=== PATIENT | male | born 1935 | race Caucasian/White ===

== ENCOUNTER 2022-11-18 09:36 | Inpatient (IN) ==
[2022-11-18] MEDS ORDERED: IOPAMIDOL 100 ML BOTTLE IV ONE ×2 (09:37)
[2022-11-18] MEDS ORDERED: ONDANSETRON 4 MG/2 ML VIAL IV ONE (10:30)
--- NOTE | 2022-11-18 10:30 | Emergency Department Note ---
HPI General Chief complaint: Trauma Stated complaint: Fall Time Seen by Provider: 11/18/22 10:21 Source: EMS Mode of arrival: EMS Limitations: altered mental status History of Present Illness HPI Narrative: Narrative: Patient presents by EMS from halfway facility. She has history of dementia and is in a [facility] unit. Patient suffered a fall. It is unclear if it was witnessed. Patient has no recollection of the event. Patient complaining of focal left hip pain as well as abdominal discomfort. Patient does take Eliquis which his reports is due to atrial fibrillation. Patient and are unsure if he had breakfast this morning. Related Data Home Medications Medication Instructions Recorded Confirmed docusate sodium [Stool Softener] PO PRN constipation 10/23/17 09/06/22 senna [Senokot] PO PRN constipation 10/23/17 09/06/22 acetaminophen 500 mg tablet 1,000 mg PO Q6H PRN 11/16/21 09/06/22 (Tylenol Extra Strength) Previous Rx's Medication Instructions Recorded loratadine 10 mg tablet (Allergy 10 mg PO QDAY #60 tabs 08/13/19 Relief (loratadine)) polyethylene glycol 3350 17 17 g PO QDAY #510 grams 02/10/20 gram/dose oral powder (Miralax) bisacodyl 10 mg rectal suppository 10 mg ME QDAY PRN constipation #12 03/25/20 ea aspirin 81 mg tablet,delayed 81 mg PO QDAY #30 tabs 02/12/21 release rosuvastatin 20 mg tablet 20 mg PO QDAY #30 tabs 02/19/21 sertraline 100 mg tablet 100 mg PO QDAY #90 tabs 03/29/22 apixaban 5 mg tablet (Eliquis) 5 mg PO BID #60 tabs 05/05/22 tramadol 50 mg tablet 50 mg PO BID PRN pain #60 tabs 05/10/22 guaifenesin 400 mg tablet 400 mg PO QID PRN cough #120 tabs 09/06/22 memantine 10 mg tablet 10 mg PO BID #180 tabs 09/06/22 olanzapine 10 mg tablet 10 mg PO QHS #90 tabs 09/06/22 donepezil 10 mg tablet 10 mg PO QHS #30 tabs 09/29/22 ibuprofen 200 mg tablet 600 mg PO Q6H PRN pain #60 tabs 11/17/22 lidocaine 5 % topical patch 1 patch topical QDAY PRN pain #15 11/17/22 ea Allergies Allergy/AdvReac Type Severity Reaction Status Date / Time No Known Drug Allergies Allergy Verified 11/18/22 09:39 Review of Systems ROS ROS Narrative: Narrative: Pertinent positives and negatives as noted in HPI. All other systems reviewed and negative. [facility] Narrative Patient History Narrative: Narrative: Medical/Surgical/Family History All Active Problems (Updated 11/18/22 @ 14:54 by Zayda Red PA-C) Closed fracture of left hip (Acute) Dementia with behavioral disturbance (Acute) Acute exacerbation of chronic low back pain (Acute) Atypical chest pain (Acute) Pigmented skin lesion suspicious for malignant neoplasm (Acute) Head injury (Acute) Contusion of scalp (Acute) Chronic SI joint pain (Acute) Actinic keratosis (Chronic) Anxiety disorder (Chronic) Arrhythmia (Chronic) Bradycardia (Chronic) Bronchitis (Chronic) Bursitis, hip (Chronic) Carbuncle and furuncle (Chronic) Chest pain (Chronic) Chronotropic incompetence (Chronic) Constipation (Chronic) Coronary artery disease (Chronic) Decreased vibratory sense (Chronic 01/02/14) Dental caries (Chronic) Pain, dental (Chronic) Dysuria (Chronic) Fatigue (Chronic) Hernia, inguinal, right (Chronic 11/19/10) Herpes zoster (Chronic 08/24/13) Hyperlipidemia (Chronic) Insomnia (Chronic) Leukocytosis (Chronic) Myofascial pain (Chronic) Obstructive uropathy (Chronic) Osteoarthritis (Chronic) Pacemaker (Chronic) Peripheral vascular disease (Chronic 01/02/14) Post herpetic neuralgia (Chronic 01/02/14) Benign prostatic hypertrophy without lower urinary tract symptoms (Chronic) Prostate neoplasm (Chronic) Sinus node dysfunction (Chronic) Sleep disturbance (Chronic) Fracture of toe, closed (Chronic) Urgency of urination (Chronic) Hx of colonoscopy (Chronic 11/19/08) Obsessive-compulsive behavior (Acute) Malfunction of cardiac pacemaker (Chronic) Adverse reaction to drug (Chronic) Dementia (Chronic) Hyperglycemia (Chronic) Malaise and fatigue (Chronic) Adverse reaction to drug (Chronic) Memory Loss (Chronic) URI (upper respiratory infection) (Chronic) Sinusitis (Chronic) Dehydration (Chronic) PAF (paroxysmal atrial fibrillation) (Chronic) Rhinitis (Chronic) Visual loss (Chronic) Prostate cancer (Chronic) Low back pain (Chronic) Risk for falls (Chronic) Scrotal pain (Chronic) Penis pain (Chronic) Hepatitis B antibody positive (Chronic) Proteinuria (Chronic) Allergic rhinitis (Chronic) Medicare annual wellness visit, initial (Acute) Driving safety issue (Acute) Weakness generalized (Acute) Normally functioning cardiac pacemaker present (Acute) Depression (Chronic) Chronic nasal congestion (Acute) Disequilibrium (Acute) Acute memory impairment (Acute) Acute confusion (Acute) 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 Resolved prior to arrival to ER. ER work-up negative for stroke CT findings of cerebral artery stenosis and right internal carotid artery aneurysm discussed below, likely unrelated to confusion episode Acute memory impairment Adverse reaction to drug possibly mirtazapine. Cardiology note from [facility] indicates donepezil causes hallucinations Adverse reaction to drug Auditory hallucinations. 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 Bisacodyl suppositories as needed. Also discussed increasing water intake to 64 ounces per day and eating prunes, 2 to 3/day Add Metamucil once a day instead of Steve delight Coronary artery disease Decreased vibratory sense (01/02/14) Bilateral Feet Dehydration Delusion Dementia Worsening. Perseverating. Dental caries Depression Ran out of sertraline a couple of months ago Restart sertraline 50 mg daily Disequilibrium Likely due to aging and dementia. Driving safety issue Dysuria Fatigue Fracture of toe, closed Hepatitis B antibody positive Follow-up with B core antibody and hep B surface antigen Hernia, inguinal, right (11/19/10) Right Reducible Herpes zoster (08/24/13) Left V-3 and Possibly V-2 Hyperglycemia Hyperlipidemia Insomnia Initially improved with trazodone 50 mg nightly, but patient now declining trazodone. His also states that he sleeps better when they are in the same bed together. Leukocytosis Low back pain CT lumbar spine of February 2020 shows stenosis of the neural foramina bilaterally at multiple levels with the greatest narrowing bilaterally at the L5-S1 level and right side at L4-5 heat application and tylenol as needed We will treat constipation as below Referral back to PT Follow-up with [facility] of PT not helpful Lumbar radiculopathy Malaise and fatigue Malfunction of cardiac pacemaker Medicare annual wellness visit, initial Memory loss Status: Deteriorating Memory Loss Donepezil helps Myofascial pain Parascapular Obsessive-compulsive behavior Status: Deteriorating Obstructive uropathy Osteoarthritis Pacemaker For remote history of symptomatic sinus bradycardia Follows with Dr. Bishop PAF (paroxysmal atrial fibrillation) Dr Bishop No evidence of recurrence in over a year. Eliquis was stopped. Pain, dental duplicate entry Penis pain Normal exam. Peripheral vascular disease (01/02/14) Post herpetic neuralgia (01/02/14) Prostate cancer D[place] 7. PSA around 9, decreasing. Follows with urology q. 6 months. Next follow-up with PSA is in June Prostate neoplasm 2010 Adenocarcinoma of the prostate, [place] 7 Dr. Carrillo. Observation. Repeat biopsies negative. Risk for falls Refer to physical therapy for assessment. Scrotal pain Benign exam. Scrotal ultrasound ordered. Sinus node dysfunction Status post pacemaker Sleep disturbance Improved on trazodone Urgency of urination Surgical History Elective replacement indicated for cardiac pacemaker battery at end of lifespan 01/07/16 History of foot surgery Bilateral Feet, end of toe on right foot removed, and toe nailed removed on the left foot History of inguinal hernia repair Right Inguinal herniorrhaphy, Dr. Carrillo History of left heart catheterization 04/2008- 20% Stenosis of the left main and 30% stenosis of the RCA History of prostate biopsy x2 showing prostate cancer, [place] 7 score History of removal of cyst (12/23/09) Painful Draining Lesion Left Axilla History of surgery Stellate Ganglion Block, Left w/o sed Stellate Ganglion Block, left w/o sed Stellate Ganglion Block, left w/o sed Stellate Ganglion Block C6 w/o sed History of tonsillectomy Hx of cataract surgery 07/2012- Left Hx of colonoscopy (11/19/08) 11/19/08-Incomplete colonoscopy with inability to intubate the cecum, very redundant and floppy colon, longstanding hx of constipation, hemorrhoids. Barrium enema to be done. 11/19/15-tubular adenoma and diverticuli Status post placement of cardiac pacemaker (05/02/06) Dual chamber. Dr. Armstrong at [facility] Family History Mother Cardiovascular disease Dementia Father Malignant neoplasm of esophagus Malignant neoplasm of stomach Social History Smoking Status: Never smoker Alcohol Intake Frequency: a few times a week Substance Use: does not use Exam Narrative Narrative: Narrative: Vital signs noted General: mild distress. Skin: Warm. Dry. No rash. Normal color. Eyes: PERRL. EOMI. Mouth: Membranes moist. Normal inspection. Neck: Good ROM. No meningeal signs. Supple. Cardiovascular: regular rate and rhythm. Respiratory: No respiratory distress. Breath sounds equal. No wheezing/rales/rhonchi. Gastrointestinal: Abdomen soft. Diffuse tenderness. No distention. Normal bowel sounds. No guarding Back: Multiple areas of tenderness which seem to be inconsistent on repeat exam. Extremities: No tenderness. No swelling. No erythema. No edema. Good peripheral pulses x 4 Neurological: No focal neurological deficits observed. CN 2-12 intact. Alert. Oriented to person which is baseline. General Limitations: altered mental status Course Course Course Narrative: The following orders are placed and reviewed by myself: Patient medicated with Dilaudid for pain and Zofran for nausea Exam is challenging as the patient seems to have inconsistently see with discomfort. He does seem to be fairly persistently painful on abdominal exam. History of fall is unclear and its indeterminate if the patient fell on any furniture or objects when he fell. CT the brain, cervical spine without contrast reported radiology to without acute changes CT of the chest, abdomen and pelvis with contrast report by radiology to be significant for left subcapital femoral neck fracture. EKG shows normal sinus rhythm at a rate of 65. QRS complexes are narrow at rate intervals. No ST elevation or depression UA does show leukocyte Estrace with white blood cells. Nitrite negative. Flags for culture and sensitivity. Patient does receive Ativan here in the emergency department for agitation. Patient discussed with orthopedic surgeon Dr. Mckoy regarding left hip fracture. Anticipation is the patient will be able to have surgery today and will not require delayed surgery due to Eliquis. Patient also discussed with and accepted by hospital service. Vital Signs Vital signs: Vital Signs Temperature 98.2 F 11/18/22 09:37 Pulse Rate 66 11/18/22 09:37 Respiratory Rate 17 11/18/22 09:37 Blood Pressure 163/80 11/18/22 09:37 Pulse Oximetry (%) 94 11/18/22 09:37 Oxygen Delivery Method Room Air 11/18/22 09:37 Temperature 98.2 F 11/18/22 09:37 Pulse Rate 69 11/18/22 13:32 Respiratory Rate 22 11/18/22 13:32 Blood Pressure 143/120 11/18/22 13:32 Pulse Oximetry (%) 95 11/18/22 13:32 Oxygen Delivery Method Room Air 11/18/22 12:18 MDM MDM Narrative Medical decision making narrative: Narrative: Lab Data 11/18/22 11:15 Labs: Lab Results 11/18/22 11/18/22 11/18/22 Range/Units 10:54 11:15 11:15 WBC 7.9 (4.5-11.0) K/mcL RBC 4.69 (4.63-6.08) M/mcL Hgb 15.4 (13.7-17.5) g/dL Hct 47.7 (40.1-51.0) % POC Hct (41-55) MCV 101.7 H (80.0-100.0) fL MCH 32.8 (26.0-34.0) pg MCHC 32.3 (31.0-36.0) g/dL RDW 13.7 (11.5-14.5) % Plt Count 283 (140-440) K/mcL MPV 9.8 (8.8-12.5) fL Immature Gran % (Auto) 0.4 (0.0-0.5) % Neut % (Auto) 74.0 (38.0-78.0) % Lymph % (Auto) 17.4 (15.5-49.0) % [place] % (Auto) 5.6 (1.0-12.0) % Eos % (Auto) 1.5 (0.0-7.0) % Baso % (Auto) 1.1 (0.0-2.0) % Lymph # (Auto) 1.38 L (1.50-4.80) K/mcL [place] # (Auto) 0.44 (0.10-0.90) K/mcL Eos # (Auto) 0.12 (0.00-0.70) K/mcL Baso # (Auto) 0.09 (0.00-0.30) K/mcL Immature Gran # 0.03 (0.00-0.05) K/mcl Absolute Neutrophils 5.85 (1.80-8.00) K/mcL PT 13.6 (11.9-14.5) sec INR 1.0 (0.9-1.1) POC Sodium (133-145) POC Potassium (3.3-5.1) POC Chloride (96-108) POC Total CO2 (22-30) POC BUN (6-20) POC Creatinine (0.6-1.2) POC Glucose (70-105) POC WB Ioniz Calcium (1.16-1.32) Urine Color Yellow Urine Appearance Clear (Clear) Urine pH 7.0 (5.0-9.0) Ur Specific Tea 1.013 (1.000-1.035) Urine Protein Negative (Negative) mg/dL Urine Glucose (UA) Negative (Negative) mg/dL Urine Ketones Negative (Negative) mg/dL Urine Occult Blood Negative (Negative) mg/dL Urine Nitrate Negative (Negative) Urine Bilirubin Negative (Negative) mg/dL Urine Urobilinogen Negative mg/dL Ur Leukocyte Esterase 75 A (Negative) /uL Urine RBC 2 (0-3) /hpf Urine WBC 30 H (0-4) /hpf Ur Squamous Epith Cells 0 (0-4) /hpf Urine Bacteria None (0) /hpf Urine Mucus Few A (None) /hpf Ur Culture Indicated? yes 11/18/22 Range/Units 11:19 WBC (4.5-11.0) K/mcL RBC (4.63-6.08) M/mcL Hgb (13.7-17.5) g/dL Hct (40.1-51.0) % POC Hct 45.0 (41-55) MCV (80.0-100.0) fL MCH (26.0-34.0) pg MCHC (31.0-36.0) g/dL RDW (11.5-14.5) % Plt Count (140-440) K/mcL MPV (8.8-12.5) fL Immature Gran % (Auto) (0.0-0.5) % Neut % (Auto) (38.0-78.0) % Lymph % (Auto) (15.5-49.0) % [place] % (Auto) (1.0-12.0) % Eos % (Auto) (0.0-7.0) % Baso % (Auto) (0.0-2.0) % Lymph # (Auto) (1.50-4.80) K/mcL [place] # (Auto) (0.10-0.90) K/mcL Eos # (Auto) (0.00-0.70) K/mcL Baso # (Auto) (0.00-0.30) K/mcL Immature Gran # (0.00-0.05) K/mcl Absolute Neutrophils (1.80-8.00) K/mcL PT (11.9-14.5) sec INR (0.9-1.1) POC Sodium 141 (133-145) POC Potassium 4.2 (3.3-5.1) POC Chloride 105 (96-108) POC Total CO2 26.0 (22-30) POC BUN 11 (6-20) POC Creatinine 0.8 (0.6-1.2) POC Glucose 123 H (70-105) POC WB Ioniz Calcium 1.21 (1.16-1.32) Urine Color Urine Appearance (Clear) Urine pH (5.0-9.0) Ur Specific Tea (1.000-1.035) Urine Protein (Negative) mg/dL Urine Glucose (UA) (Negative) mg/dL Urine Ketones (Negative) mg/dL Urine Occult Blood (Negative) mg/dL Urine Nitrate (Negative) Urine Bilirubin (Negative) mg/dL Urine Urobilinogen mg/dL Ur Leukocyte Esterase (Negative) /uL Urine RBC (0-3) /hpf Urine WBC (0-4) /hpf Ur Squamous Epith Cells (0-4) /hpf Urine Bacteria (0) /hpf Urine Mucus (None) /hpf Ur Culture Indicated? Discharge Plan Patient/Caregiver Discharge Instructions Pt seen by PRINCIPAL EXAMINER/PA only: Yes Clinical Impression: Closed fracture of left hip Patient Disposition: Xfer As Outpt/Obs ([facility]) Follow up with: Rashad Mcdonnell DO [Primary Care Provider] - Olivier Mckoy MD [Physician] - Prescriptions: No Action rosuvastatin 20 mg tablet 20 mg PO QDAY Qty: 30 2RF Eliquis 5 mg tablet 5 mg PO BID Qty: 60 3RF tramadol 50 mg tablet 50 mg PO BID PRN (Reason: pain) Qty: 60 0RF donepezil 10 mg tablet 10 mg PO QHS Qty: 30 5RF lidocaine 5 % adhesive patch,medicated 1 patch topical QDAY PRN (Reason: pain) Qty: 15 0RF Rx Instructions: Apply to most painful area for up to 12 hrs/day. ibuprofen 200 mg tablet 600 mg PO Q6H PRN (Reason: pain) Qty: 60 0RF senna PO PRN (Reason: constipation) docusate sodium PO PRN (Reason: constipation) loratadine [Allergy Relief (loratadine)] 10 mg tablet 10 mg PO QDAY Qty: 60 1RF polyethylene glycol 3350 [Miralax] 17 gram/dose powder 17 g PO QDAY Qty: 510 1RF bisacodyl 10 mg suppository 10 mg ME QDAY PRN (Reason: constipation) Qty: 12 0RF acetaminophen [Tylenol Extra Strength] 500 mg tablet 1,000 mg PO Q6H PRN sertraline 100 mg tablet 100 mg PO QDAY Qty: 90 1RF olanzapine 10 mg tablet 10 mg PO QHS Qty: 90 3RF memantine 10 mg tablet 10 mg PO BID Qty: 180 3RF guaifenesin 400 mg tablet 400 mg PO QID PRN (Reason: cough) Qty: 120 3RF aspirin 81 mg tablet,delayed release (DR/EC) 81 mg PO QDAY Qty: 30 0RF The patient's case was discussed with the PA. The patient's labs and imaging were reviewed by myself. The HPI, work-up, and assessment and plan were discussed and I agree with the documentation as detailed.
[2022-11-18] MEDS: HYDROmorphone 0.5 MG/0.5 ML SYRINGE IV PRN ×2 (11:18→12:50)
[2022-11-18 11:24] LABS: POC Calcium, Ionized 1.21 (1.16-1.32); POC Creatinine 0.8 (0.6-1.2); POC Potassium 4.2 (3.3-5.1)
[2022-11-18 11:35] LABS: Appearance,Urine CLEAR (Clear); Bilirubin,Urine Negative (Negative); Color,Urine YELLOW; Culture Indicated,Urine yes; Glucose,Urine (UA) Negative (Negative); Ketones,Urine Negative (Negative); Leukocyte Esterase,Urine 75 /uL (Negative); Mucus,Urine FEW /hpf; Nitrate,Urine Negative (Negative); Protein,Urine Negative (Negative); Specific Gravity,Urine 1.013 (1.000-1.035); Urine Blood Negative (Negative); Urine RBC 2 /hpf (0-3); Urine Squamous Epithelial Cell 0 /hpf (0-4); Urine WBC 30 /hpf (0-4); Urobilinogen,Urine Negative
[2022-11-18 12:09] LABS: Prothrombin Time 13.6 sec (11.9-14.5)
[2022-11-18 12:24] LABS: Basophils # (Auto) 0.09 K/mcL (0.00-0.30); Basophils % (Auto) 1.1 % (0.0-2.0); Eosinophils # (Auto) 0.12 K/mcL (0.00-0.70); Eosinophils % (Auto) 1.5 % (0.0-7.0); Hematocrit 47.7 % (40.1-51.0); Hemoglobin 15.4 g/dL (13.7-17.5); Lymphocytes # (Auto) 1.38 K/mcL (1.50-4.80); Lymphocytes % (Auto) 17.4 % (15.5-49.0); Mean Cell Volume 101.7 fL (80.0-100.0); Mean Corpuscular HGB Conc 32.3 g/dL (31.0-36.0); Mean Platelet Volume 9.8 fL (8.8-12.5); Monocytes # (Auto) 0.44 K/mcL (0.10-0.90); Monocytes % (Auto) 5.6 % (1.0-12.0); Platelet Count 283 K/mcL (140-440); RBC 4.69 M/mcL (4.63-6.08); Red Cell Distribution Width 13.7 % (11.5-14.5); WBC 7.9 K/mcL (4.5-11.0)
[2022-11-18] MEDS ORDERED: LORazepam 2 MG/ML VIAL IV ONE ×2 (12:55→14:24)
--- NOTE | 2022-11-18 12:56 | Cat Scan Report ---
CLINICAL INFORMATION: Trauma COMPARISON: 11/24/2021 TECHNIQUE: 2.5 mm helical slices were obtained in the skull base to vertex. Following reconstruction, axial reformatted images were reviewed at bone and parenchymal windows. The exam was performed using radiation dose optimization techniques including, but not limited to, automated exposure control, adjustment of the mA and/or kV according to patient size and use of iterative reconstruction technique. FINDINGS: The ventricles, sulci, fissures, and cisterns are symmetrically enlarged compatible with moderate age-related atrophy. No extra-axial fluid collections are identified. Moderate patchy chronic ischemic changes, in the deep cerebral white matter, are expected for age. There is no hemorrhage, mass effect, or edema. Bone windows show no osseous abnormality. IMPRESSION: Moderate atrophy and chronic ischemic changes in the deep cerebral white matter-expected for age. No acute findings Interpreted and Authenticated by: Rashad Mayorga 11/18/22
--- NOTE | 2022-11-18 13:17 | Cat Scan Report ---
CLINICAL INFORMATION: Trauma COMPARISON: Abdomen and pelvic CT 07/16/2022. TECHNIQUE: 80 cc of [id number]-[id number] were injected intravenously, and 50 seconds later, 0.625 mm helical slices were obtained from the lung apices through the subtrochanteric regions of the femurs. Following reconstruction, 2.5 mm sagittal, coronal and axial reformatted images were processed and reviewed at multiple windows and levels. 7 mm MIP reconstructions were obtained through the lungs to optimize nodule detection.The exam was performed using radiation dose optimization techniques including, but not limited to, automated exposure control, adjustment of the mA and/or kV according to patient size and use of iterative reconstruction technique. FINDINGS: Pulmonary parenchymal windows show subsegmental atelectasis in both posterior lower lobes. Pleural spaces are unremarkable-no effusions. Mediastinal windows show the heart is is mildly enlarged. Pacemaker leads in satisfactory position. Calcification seen in the aortic valve. Scattered calcific plaque present in the coronary arteries.. The pulmonary arteries are normal diameter well-opacified without evidence of embolus. Thoracic aorta is also normal diameter and well-opacified. There is no adenopathy in the mediastinal, hilar or axillary regions. No mediastinal hemorrhage. Moderate dilatation of the superior thoracic esophagus may indicate a mid esophageal stricture.. The thyroid is unremarkable. Abdominal images show the gallbladder and bile ducts, liver, adrenal glands, spleen, and pancreas are normal in size, configuration and attenuation without focal lesion. Saccular aneurysm of the infrarenal abdominal aortic aneurysm features a diameter of 3.1 cm. Small nonobstructing stones again seen in both kidneys: 3 mm superior calyx left kidney, 2 mm inferior calyx left kidney, 3 mm inferior calyx right kidney. No obstructing stone or hydronephrosis. There is no free air, free fluid or adenopathy. Pelvic images moderate prostate enlargement 6.2 cm. There is minimal wall thickening urinary bladder stressing chronic bladder outlet narrowing. Few sigmoid diverticula appreciated but no evidence of diverticulitis. The remaining large bowel, appendix region, small bowel and stomach are normal. Bone windows show a minimally displaced acute subcapital fracture of the left hip. No other osseous normality. IMPRESSION: 1. Acute minimally displaced subcapital fracture-left hip. 2. Moderate prostate enlargement-stable 3. 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 4. Small nonobstructing stones in the calyces of both kidneys seen as before. 5. Mild dilatation of the superior thoracic esophagus which could indicate mid esophageal stricture likely due to peptic disease. If the patient has dysphagia, consider esophagram Interpreted and Authenticated by: Rashad Mayorga 11/18/22
--- NOTE | 2022-11-18 13:19 | Cat Scan Report ---
CLINICAL INFORMATION: Trauma COMPARISON: None. TECHNIQUE: 0.625 mm helical slices were obtained from the skull base through the superior T2 end plate. Following reconstruction, 2.5 mm sagittal, coronal and axial reformations , with and without disc space angling, were processed. The exam was reviewed at bone and soft tissue windows. The exam was performed using radiation dose optimization techniques including, but not limited to, automated exposure control, adjustment of the mA and/or kV according to patient size and use of iterative reconstruction technique. FINDINGS: Sagittal and coronal reformatted images show the cervical spine is anatomically aligned. There is no fracture or other osseous abnormality. The cervical cord is normal in contour and caliber without focal lesion. The soft tissues are normal. The C2-3 disc level is normal. At C3-4 small far right disc protrusion facet arthropathy result in moderate right IV foraminal narrowing. At C4-5 mild broad disc protrusion right-sided asymmetry and facet arthropathy result in severe right IV foraminal narrowing possible right C5 nerve root impingement At C5-6 moderate broad disc protrusion with right-sided asymmetry results in mild central canal moderate left and moderate right IV foraminal narrowing. At C6-7, moderate broad disc protrusion left-sided asymmetry results in mild central canal and moderate left IV foraminal narrowing. C7-T1 disc level is normal. IMPRESSION: No fracture or other posttraumatic change. Mild multilevel degeneration Interpreted and Authenticated by: Rashad Mayorga 11/18/22
--- NOTE | 2022-11-18 15:01 | Internal Med History&Physical ---
HPI History of Present Illness Patient information: Note initiated : 11/18/22 at 2:51 pm Service Date, if different from initiated Date: [] Patient: Calvin Kay a 87 y/o M admitted on for Percutaneous Screw Fixations Left Hip Fracture. Chief Complaint: [Fall] Chief complaint: Fall History of present illness: Mr. Kay is a 87 year old M history of dementia, proximal atrial fibrillation, dyslipidemia, depression, presenting with accidental fall. Patient was just admitted to the [facility] facility on 11/17/22. It was reported that the patient had not unwitnessed fall earlier this morning. Patient is not verbal at all hence cannot provide any further details. He was brought to our ED for further evaluations. Imaging showing acute minimally displaced subcapital fracture of the left hip. Vital signs stable. Labs significant for urinary tract infections suggested by the UA. Orthopedic surgeons Dr. Mckoy notified about the patient and would like to take the patient to the OR for surgical fixation today despite the fact that the patient was on Eliquis because he only plan to do a [id number] fixation. Review of Systems ROS unobtainable: due to mental status PFSH PFSH All Active Problems (Updated 11/18/22 @ 14:59 by Sundeep Pascual MD) UTI (urinary tract infection) (Acute) Closed fracture of left hip (Acute) Dementia with behavioral disturbance (Acute) Acute exacerbation of chronic low back pain (Acute) Atypical chest pain (Acute) Pigmented skin lesion suspicious for malignant neoplasm (Acute) Head injury (Acute) Contusion of scalp (Acute) Chronic SI joint pain (Acute) Actinic keratosis (Chronic) Anxiety disorder (Chronic) Arrhythmia (Chronic) Bradycardia (Chronic) Bronchitis (Chronic) Bursitis, hip (Chronic) Carbuncle and furuncle (Chronic) Chest pain (Chronic) Chronotropic incompetence (Chronic) Constipation (Chronic) Coronary artery disease (Chronic) Decreased vibratory sense (Chronic 01/02/14) Dental caries (Chronic) Pain, dental (Chronic) Dysuria (Chronic) Fatigue (Chronic) Hernia, inguinal, right (Chronic 11/19/10) Herpes zoster (Chronic 08/24/13) Hyperlipidemia (Chronic) Insomnia (Chronic) Leukocytosis (Chronic) Myofascial pain (Chronic) Obstructive uropathy (Chronic) Osteoarthritis (Chronic) Pacemaker (Chronic) Peripheral vascular disease (Chronic 01/02/14) Post herpetic neuralgia (Chronic 01/02/14) Benign prostatic hypertrophy without lower urinary tract symptoms (Chronic) Prostate neoplasm (Chronic) Sinus node dysfunction (Chronic) Sleep disturbance (Chronic) Fracture of toe, closed (Chronic) Urgency of urination (Chronic) Hx of colonoscopy (Chronic 11/19/08) Obsessive-compulsive behavior (Acute) Malfunction of cardiac pacemaker (Chronic) Adverse reaction to drug (Chronic) Dementia (Chronic) Hyperglycemia (Chronic) Malaise and fatigue (Chronic) Adverse reaction to drug (Chronic) Memory Loss (Chronic) URI (upper respiratory infection) (Chronic) Sinusitis (Chronic) Dehydration (Chronic) PAF (paroxysmal atrial fibrillation) (Chronic) Rhinitis (Chronic) Visual loss (Chronic) Prostate cancer (Chronic) Low back pain (Chronic) Risk for falls (Chronic) Scrotal pain (Chronic) Penis pain (Chronic) Hepatitis B antibody positive (Chronic) Proteinuria (Chronic) Allergic rhinitis (Chronic) Medicare annual wellness visit, initial (Acute) Driving safety issue (Acute) Weakness generalized (Acute) Normally functioning cardiac pacemaker present (Acute) Depression (Chronic) Chronic nasal congestion (Acute) Disequilibrium (Acute) Acute memory impairment (Acute) Acute confusion (Acute) 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 Resolved prior to arrival to ER. ER work-up negative for stroke CT findings of cerebral artery stenosis and right internal carotid artery aneurysm discussed below, likely unrelated to confusion episode Acute memory impairment Adverse reaction to drug possibly mirtazapine. Cardiology note from [facility] indicates donepezil causes hallucinations Adverse reaction to drug Auditory hallucinations. 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 Bisacodyl suppositories as needed. Also discussed increasing water intake to 64 ounces per day and eating prunes, 2 to 3/day Add Metamucil once a day instead of Steve delight Coronary artery disease Decreased vibratory sense (01/02/14) Bilateral Feet Dehydration Delusion Dementia Worsening. Perseverating. Dental caries Depression Ran out of sertraline a couple of months ago Restart sertraline 50 mg daily Disequilibrium Likely due to aging and dementia. Driving safety issue Dysuria Fatigue Fracture of toe, closed Hepatitis B antibody positive Follow-up with B core antibody and hep B surface antigen Hernia, inguinal, right (11/19/10) Right Reducible Herpes zoster (08/24/13) Left V-3 and Possibly V-2 Hyperglycemia Hyperlipidemia Insomnia Initially improved with trazodone 50 mg nightly, but patient now declining trazodone. His also states that he sleeps better when they are in the same bed together. Leukocytosis Low back pain CT lumbar spine of February 2020 shows stenosis of the neural foramina bilaterally at multiple levels with the greatest narrowing bilaterally at the L5-S1 level and right side at L4-5 heat application and tylenol as needed We will treat constipation as below Referral back to PT Follow-up with [facility] of PT not helpful Lumbar radiculopathy Malaise and fatigue Malfunction of cardiac pacemaker Medicare annual wellness visit, initial Memory loss Status: Deteriorating Memory Loss Donepezil helps Myofascial pain Parascapular Obsessive-compulsive behavior Status: Deteriorating Obstructive uropathy Osteoarthritis Pacemaker For remote history of symptomatic sinus bradycardia Follows with Dr. Bishop PAF (paroxysmal atrial fibrillation) Dr Bishop No evidence of recurrence in over a year. Eliquis was stopped. Pain, dental duplicate entry Penis pain Normal exam. Peripheral vascular disease (01/02/14) Post herpetic neuralgia (01/02/14) Prostate cancer [place] 7. PSA around 9, decreasing. Follows with urology q. 6 months. Next follow-up with PSA is in June Prostate neoplasm 2010 Adenocarcinoma of the prostate, [place] [address] Dr. Carrillo. Observation. Repeat biopsies negative. Risk for falls Refer to physical therapy for assessment. Scrotal pain Benign exam. Scrotal ultrasound ordered. Sinus node dysfunction Status post pacemaker Sleep disturbance Improved on trazodone Urgency of urination Surgical History Elective replacement indicated for cardiac pacemaker battery at end of lifespan 01/07/16 History of foot surgery Bilateral Feet, end of toe on right foot removed, and toe nailed removed on the left foot History of inguinal hernia repair Right Inguinal herniorrhaphy, Dr. Carrillo History of left heart catheterization 04/2008- 20% Stenosis of the left main and 30% stenosis of the RCA History of prostate biopsy x2 showing prostate cancer, [place] 7 score History of removal of cyst (12/23/09) Painful Draining Lesion Left Axilla History of surgery Stellate Ganglion Block, Left w/o sed Stellate Ganglion Block, left w/o sed Stellate Ganglion Block, left w/o sed Stellate Ganglion Block C6 w/o sed History of tonsillectomy Hx of cataract surgery 07/2012- Left Hx of colonoscopy (11/19/08) 11/19/08-Incomplete colonoscopy with inability to intubate the cecum, very redundant and floppy colon, longstanding hx of constipation, hemorrhoids. Barrium enema to be done. 11/19/15-tubular adenoma and diverticuli Status post placement of cardiac pacemaker (05/02/06) Dual chamber. Dr. [facility] at [facility] Family History Mother Cardiovascular disease Dementia Father Malignant neoplasm of esophagus Malignant neoplasm of stomach Social History household members: spouse housing: house lives independently: Yes marital status: education level: college occupational status: retired smoking status: Never smoker alcohol intake frequency: a few times a week substance use type: does not use MEDS/ALLERGIES Home Medications and Allergies Home Medications Medication Instructions Recorded Confirmed Type docusate sodium [Stool Softener] PO PRN constipation 10/23/17 09/06/22 History senna [Senokot] PO PRN constipation 10/23/17 09/06/22 History loratadine 10 mg tablet (Allergy 10 mg PO QDAY #60 tabs 08/13/19 09/06/22 Rx Relief (loratadine)) polyethylene glycol 3350 17 17 g PO QDAY #510 grams 02/10/20 09/06/22 Rx gram/dose oral powder (Miralax) bisacodyl 10 mg rectal suppository 10 mg MI QDAY PRN constipation #12 03/25/20 09/06/22 Rx ea aspirin 81 mg tablet,delayed 81 mg PO QDAY #30 tabs 02/12/21 09/06/22 Rx release rosuvastatin 20 mg tablet 20 mg PO QDAY #30 tabs 02/19/21 09/06/22 Rx acetaminophen 500 mg tablet 1,000 mg PO Q6H PRN 11/16/21 09/06/22 History (Tylenol Extra Strength) sertraline 100 mg tablet 100 mg PO QDAY #90 tabs 03/29/22 09/06/22 Rx apixaban 5 mg tablet (Eliquis) 5 mg PO BID #60 tabs 05/05/22 11/18/22 Rx tramadol 50 mg tablet 50 mg PO BID PRN pain #60 tabs 05/10/22 09/06/22 Rx guaifenesin 400 mg tablet 400 mg PO QID PRN cough #120 tabs 09/06/22 09/06/22 Rx memantine 10 mg tablet 10 mg PO BID #180 tabs 09/06/22 09/06/22 Rx olanzapine 10 mg tablet 10 mg PO QHS #90 tabs 09/06/22 09/06/22 Rx donepezil 10 mg tablet 10 mg PO QHS #30 tabs 09/29/22 Rx ibuprofen 200 mg tablet 600 mg PO Q6H PRN pain #60 tabs 11/17/22 Rx lidocaine 5 % topical patch 1 patch topical QDAY PRN pain #15 11/17/22 Rx ea Allergies Allergy/AdvReac Type Severity Reaction Status Date / Time No Known Drug Allergies Allergy Verified 11/18/22 09:39 EXAM Constitutional Vitals: Temp Pulse Resp BP Pulse Ox O2 Del Method 36.8 C 69 22 143/120 95 Room Air 11/18/22 09:37 11/18/22 13:32 11/18/22 13:32 11/18/22 13:32 11/18/22 13:32 11/18/22 12:18 Exam: Sleeping Head Head exam: Present atraumatic and normocephalic Eye Eye exam: Present EOMI and PERRL ENT ENT exam: Present mucous membranes moist, normal exam and normal external ear exam Neck Neck exam: Present normal inspection; Absent lymphadenopathy, tenderness or thyromegaly Respiratory Respiratory exam: Absent accessory muscle use, respiratory distress or wheezes Cardiovascular Cardiovascular exam: Present irregular rhythm; Absent JVD GI/Abdominal GI/Abdominal exam: Present normal bowel sounds and soft; Absent organomegaly or tenderness Rectal Rectal exam: Present deferred Extremities Exam Extremities exam: Present normal capillary refill and tenderness; Absent full ROM or normal inspection Additional comments: Left hip active and passive ROMs limited by pain Neurological Exam Additional comments: Patient is sleeping Psychiatric Additional comments: Deferred Skin Skin exam: Present dry and intact DATA Data Completed and Pending Labs: Labs from last 24 hours 11/18/22 11/18/22 11/18/22 11:19 11:15 11:15 WBC 7.9 RBC 4.69 Hgb 15.4 Hct 47.7 POC Hct 45.0 MCV 101.7 H MCH 32.8 MCHC 32.3 RDW 13.7 Plt Count 283 MPV 9.8 Immature Gran % (Auto) 0.4 Neut % (Auto) 74.0 Lymph % (Auto) 17.4 [place] % (Auto) 5.6 Eos % (Auto) 1.5 Baso % (Auto) 1.1 Lymph # (Auto) 1.38 L [place] # (Auto) 0.44 Eos # (Auto) 0.12 Baso # (Auto) 0.09 Immature Gran # 0.03 Absolute Neutrophils 5.85 PT 13.6 INR 1.0 POC Sodium 141 POC Potassium 4.2 POC Chloride 105 POC Total CO2 26.0 POC BUN 11 POC Creatinine 0.8 POC Glucose 123 H POC WB Ioniz Calcium 1.21 Urine Color Urine Appearance Urine pH Ur Specific [place] Urine Protein Urine Glucose (UA) Urine Ketones Urine Occult Blood Urine Nitrate Urine Bilirubin Urine Urobilinogen Ur Leukocyte Esterase Urine RBC Urine WBC Ur Squamous Epith Cells Urine Bacteria Urine Mucus Ur Culture Indicated? 11/18/22 10:54 WBC RBC Hgb Hct POC Hct MCV MCH MCHC RDW Plt Count MPV Immature Gran % (Auto) Neut % (Auto) Lymph % (Auto) [place] % (Auto) Eos % (Auto) Baso % (Auto) Lymph # (Auto) [place] # (Auto) Eos # (Auto) Baso # (Auto) Immature Gran # Absolute Neutrophils PT INR POC Sodium POC Potassium POC Chloride POC Total CO2 POC BUN POC Creatinine POC Glucose POC WB Ioniz Calcium Urine Color Yellow Urine Appearance Clear Urine pH 7.0 Ur Specific [place] 1.013 Urine Protein Negative Urine Glucose (UA) Negative Urine Ketones Negative Urine Occult Blood Negative Urine Nitrate Negative Urine Bilirubin Negative Urine Urobilinogen Negative Ur Leukocyte Esterase 75 A Urine RBC 2 Urine WBC 30 H Ur Squamous Epith Cells 0 Urine Bacteria None Urine Mucus Few A Ur Culture Indicated? yes A/P Assessment and plan (1) Closed fracture of left hip: Status: Acute (2) Dementia with behavioral disturbance: Status: Acute (3) PAF (paroxysmal atrial fibrillation): Status: Chronic Comment: Dr Bishpo No evidence of recurrence in over a year. Eliquis was stopped. (4) Hyperlipidemia: Status: Chronic Qualifiers: Hyperlipidemia type: mixed hyperlipidemia Qualified Code(s): E78.2 - Mixed hyperlipidemia (5) Depression: Status: Chronic Comment: Ran out of sertraline a couple of months ago Restart sertraline 50 mg daily Qualifiers: Depression Type: major depressive disorder Major depression recurrence: single episode Active/Remission status: currently active Major depression episode severity: mild Qualified Code(s): F32.0 - Major depressive disorder, single episode, mild (6) UTI (urinary tract infection): Status: Acute Narrative A/P Narrative: Assessment and Plans: 1. Acute minimally displaced subcapital fracture of the left hip: Admit to inpatient MedSurg Bedrest N.p.o. with normal saline 100 cc/h Orthopedic surgeon Dr. Mckoy notified about the patient and would like to take the patient to the OR today for surgical fixation Hold aspirin and Eliquis Tylenol Oxycodone Morphine Physical therapy evaluation and treatment Occupational Therapy evaluation and treatment 2. History of dementia: Donepezil Memantine 3. History of depressions: Continue sertraline 4. Dyslipidemia: Continue Crestor 5. Urinary infections: Serial lactic acid Procalcitonin level Blood culture Urine culture CBC with auto differential in the morning to trend WBC IV fluid with normal saline at 100 cc/h Rocephin GI prophylaxis: Not current indicated DVT prophylaxis: SCDs CODE STATUS: Full code Prognosis: Guarded Dispositions: Inpatient MedSurg Time Spent With Patient Time: Total time spent is greater than 50% in coordination of care (as documented) at patient's floor/unit and/or counseling patient: Initial: Total time with patient: 55 - 74 minutes
--- NOTE | 2022-11-18 15:36 | XRay Report ---
CLINICAL INFORMATION: Trauma COMPARISON: Abdomen and pelvic CT 11/10/2022 FINDINGS: Acute minimally displaced subcapital fracture left hip appreciated. There is mild degeneration both SI and hip joints. Contrast from recent CT is seen urinary bladder which is grossly normal. No soft tissue abnormality. IMPRESSION: Minimally displaced subcapital fracture-left hip Interpreted and Authenticated by: Rashad Mayorga 11/18/22
[2022-11-18] MEDS ORDERED: cefTRIAXone 1 GM in DEXTROSE 5% IN WATER 50 ML IV SCH (15:43)
[2022-11-18] MEDS ORDERED: IPRATROPIUM/ALBUTEROL 3 ML AMPUL.NEB NEB PRN ×2 (15:43→17:41)
[2022-11-18] MEDS ORDERED: ONDANSETRON 4 MG/2 ML VIAL IV PRN ×2 (15:43→17:41)
[2022-11-18] MEDS ORDERED: ACETAMINOPHEN 325 MG TABLET PO PRN (15:43)
[2022-11-18] MEDS ORDERED: ceFAZolin 2 GM in DEXTROSE 5% IN WATER 50 ML IV SCH ×2 (16:30→17:45)
[2022-11-18] MEDS ORDERED: ONDANSETRON 4 MG/2 ML VIAL ONE (16:56)
[2022-11-18] MEDS ORDERED: DEXAMETHASONE 10 MG/ML VIAL ONE (16:56)
[2022-11-18] MEDS ORDERED: LIDOCAINE HCL/PF 100 MG/5 ML SYRINGE IV ONE (16:56)
[2022-11-18] MEDS ORDERED: KETAMINE 50 MG/ML Syringe (ANEST) IV ONE (16:56)
[2022-11-18] MEDS ORDERED: PHENYLephrine 1 MG/10 ML SYRINGE (ANEST) ONE (16:56)
[2022-11-18] MEDS ORDERED: PROPOFOL 200 MG/20 ML VIAL IV ONE (16:56)
[2022-11-18] MEDS ORDERED: HYDROmorphone 1 MG/ML SYRINGE ONE (16:56)
[2022-11-18] MEDS ORDERED: GLYCOPYRROLATE 0.2 MG/ML VIAL IV ONE (16:56)
[2022-11-18] MEDS ORDERED: TRANEXAMIC ACID 1,000 MG/10 ML VIAL ONE (16:56)
[2022-11-18] MEDS ORDERED: MIDAZOLAM 2 MG/2 ML VIAL ONE (16:56)
[2022-11-18] MEDS ORDERED: LIDOCAINE PATCH TOPICAL PRN (17:09)
[2022-11-18] MEDS ORDERED: ACETAMINOPHEN 500 MG TABLET PO PRN (17:09)
[2022-11-18] MEDS ORDERED: BENZOCAINE/MENTHOL 1 LOZENGE PO PRN (17:38)
[2022-11-18] MEDS ORDERED: METHOCARBAMOL 1,000 MG/10 ML VIAL IV PRN (17:41)
[2022-11-18] MEDS ORDERED: fentaNYL 100 MCG/2 ML VIAL IV PRN (17:41)
[2022-11-18] MEDS ORDERED: MEPERIDINE 25 MG/ML VIAL IV PRN (17:41)
[2022-11-18] MEDS ORDERED: PROMETHAZINE 25 MG/ML VIAL IV PRN (17:41)
--- NOTE | 2022-11-18 17:43 | Brief Operative Note ---
Brief Operative Note Date of procedure: 11/18/22 Pre-op diagnosis: Left non displaced subcapital femoral neck fracture Post-op diagnosis: same Procedure: Percutaneous screw fixation of left femoral neck fracture Anesthesia: GLMA Findings: non displaced fracture Complications: none Surgeon: Olivier Mckoy [employer] Consultant: Ben Bullock Estimated blood loss (cc): 20 Specimens Removed/Pathology: none sent Condition: stable Disposition: PACU
--- NOTE | 2022-11-18 18:12 | XRay Report ---
CLINICAL INFORMATION: hip fracture COMPARISON: None. FINDINGS: Digital images from the OR show subcapital fracture has been reduced to anatomic alignment and transfixed by three pins. Left hip joint is normal. Total fluoroscopy time 0.9 minutes IMPRESSION: ORIF subcapital fracture left hip in anatomic alignment Interpreted and Authenticated by: Rashad Mayorga 11/18/22
[2022-11-18] MEDS ORDERED: ceFAZolin 1 GM VIAL ONE (18:54)
[2022-11-18] MEDS: 0.9 % SODIUM CHLORIDE 1,000 ML IV SCH (18:56)
[2022-11-18] MEDS: cefTRIAXone 1 GM VIAL IV SCH (18:57)
[2022-11-18] MEDS ORDERED: guaiFENesin 600 MG TAB.SR.12H PO PRN (21:10)
[2022-11-18] MEDS ORDERED: POLYETHYLENE GLYCOL 3350 17 GM PACKET PO PRN (21:14)
[2022-11-18] MEDS: morphine 4 MG/ML VIAL IV PRN (23:46)
[2022-11-18] MEDS: ASPIRIN 325 MG ENTERIC COATED TABLET PO SCH (23:47)
[2022-11-18] MEDS: MEMANTINE 10 MG TABLET PO SCH (23:47)
[2022-11-18] MEDS: DONEPEZIL 10 MG TABLET PO SCH (23:47)
[2022-11-18] MEDS: DOCUSATE SODIUM 100 MG CAPSULE PO SCH (23:47)
[2022-11-18] MEDS: 0.9 % SODIUM CHLORIDE 10 ML SYRINGE IV SCH (23:48)
[2022-11-18] MEDS: SENNOSIDES 1 TABLET PO SCH (23:48)
[2022-11-19] MEDS: ceFAZolin 1 GM VIAL IV SCH ×2 (00:46→08:21)
[2022-11-19] MEDS: 0.9 % SODIUM CHLORIDE 1,000 ML IV SCH ×2 (04:39→12:11)
[2022-11-19] MEDS: 0.9 % SODIUM CHLORIDE 10 ML SYRINGE IV SCH (04:39)
[2022-11-19] MEDS: morphine 4 MG/ML VIAL IV PRN (04:56)
[2022-11-19 06:35] LABS: Basophils # (Auto) 0.02 K/mcL (0.00-0.30); Basophils % (Auto) 0.2 % (0.0-2.0); Eosinophils # (Auto) 0 K/mcL (0.00-0.70); Eosinophils % (Auto) 0 % (0.0-7.0); Hematocrit 44.8 % (40.1-51.0); Hemoglobin 15.4 g/dL (13.7-17.5); Lymphocytes % (Auto) 8.3 % (15.5-49.0); Mean Cell Volume 95.5 fL (80.0-100.0); Mean Corpuscular HGB Conc 34.4 g/dL (31.0-36.0); Mean Platelet Volume 9.7 fL (8.8-12.5); Monocytes # (Auto) 0.35 K/mcL (0.10-0.90); Monocytes % (Auto) 3.2 % (1.0-12.0); Neutrophils % (Auto) 87.8 % (38.0-78.0); Platelet Count 181 K/mcL (140-440); RBC 4.69 M/mcL (4.63-6.08); Red Cell Distribution Width 13.2 % (11.5-14.5); WBC 10.8 K/mcL (4.5-11.0)
[2022-11-19 06:48] LABS: ALT/SGPT 14 U/L (<40); AST/SGOT 22 U/L (<40); Albumin 3.7 gm/dL (3.2-5.2); Albumin/Globulin Ratio 1.4 (1.0-2.3); Alkaline Phosphatase 78 U/L (39-117); Bilirubin,Total 0.8 mg/dL (0.1-1.0); Blood Urea Nitrogen 10 mg/dL (8-23); Calcium 8.8 mg/dL (8.6-10.4); Carbon Dioxide 21 mmol/L (22-30); Chloride 102 mmol/L (96-108); Globulin 2.6 gm/dL (2.2-3.7); Glomerular Filtration Rate 77; Glucose 157 mg/dL (70-105)
[2022-11-19] MEDS: oxyCODONE IR 5 MG TABLET PO PRN ×4 (07:18→20:55)
[2022-11-19] MEDS: SERTRALINE 100 MG TABLET PO SCH (08:22)
[2022-11-19] MEDS: ASPIRIN 325 MG ENTERIC COATED TABLET PO SCH ×2 (08:22→20:55)
[2022-11-19] MEDS: LORATADINE 10 MG TABLET PO SCH (08:22)
[2022-11-19] MEDS: MEMANTINE 10 MG TABLET PO SCH ×2 (08:22→20:55)
[2022-11-19] MEDS: DOCUSATE SODIUM 100 MG CAPSULE PO SCH ×2 (08:22→20:55)
--- NOTE | 2022-11-19 09:30 | Internal Med Progress Note ---
SUBJECTIVE Subjective Patient information: Note initiated : 11/19/22 at 9:23 am Service Date, if different from initiated Date: [] Patient: Calvin Kay a 87 y/o M admitted on 11/18/22 for Percutaneous Screw Fixations Left Hip Fracture. Chief Complaint: [] Interval history: Mr. Kay is a 87 year old M history of dementia, proximal atrial fibrillation, dyslipidemia, depression, presenting with accidental fall. [facility] It was reported that the patient had not unwitnessed fall earlier this morning. Patient is not verbal at all hence cannot provide any further details. He was brought to our ED for further evaluations. Imaging showing acute minimally displaced subcapital fracture of the left hip. Vital signs stable. Labs significant for urinary tract infections suggested by the UA. Orthopedic surgeons Dr. Mckoy notified about the patient and would like to take the patient to the OR for surgical fixation today despite the fact that the patient was on Eliquis because he only plan to do a [id number] fixation. 11/19: s/p percutaneous screw fixation of left femoral neck fracture Dr. Mckoy on 11/18. Patient tolerated the procedure well. Patient is very confused this morning. Subjective not obtained at due to clinical situations. Postoperative care with narcotics as needed for symptoms control. Physical therapy and Occupational Therapy evaluation and treatment for placement planning. Switch antibiotics from Rocephin to Bactrim DS for urinary tract infections while monitoring for blood and urine culture result. Overall condition guarded. Constitutional Vitals: Vital Signs Temp Pulse Resp BP Pulse Ox O2 Del Method O2 Flow Rate 37.2 C 74 20 132/80 96 Room Air 2 11/19/22 08:00 11/19/22 08:00 11/19/22 08:00 11/19/22 08:00 11/19/22 08:00 11/19/22 08:00 11/18/22 20:30 Period Temp Pulse Resp BP Sys/Lopez Pulse Ox O2 Del Method O2 Flow Rate Last 24 Hr 36.5 C-37.7 C 59-99 14-28 124-178/68-120 90-99 Oxymask-Room Air 0-6 Intake and Output 11/18/22 11/19/22 11/19/22 19:59 03:59 11:59 Intake Total 1050 972 Output Total 8 452 251 Balance 1042 -452 721 Weight 86.636 kg 80.785 kg Intake & Output: Intake & Output 11/18/22 11/19/22 11/19/22 19:59 03:59 11:59 Intake Total 1050 972 Output Total 8 452 251 Balance 1042 -452 721 Weight 86.636 kg 80.785 kg Intake: IV 50 972 Sodium Chloride 0.9% 1,000 ml @ 972 100 mls/hr IV .Q10H [facility] Rx#: [id number] Ancef 2 gm In Dextrose 5% in 50 Water 50 ml @ 100 mls/hr IV [facility] Rx#:[id number] IV - Manual Only 1000 Output: Void Amount 450 250 # of times incontinent of urine 3 2 1 Estimated Blood Loss 5 Other: Urine Appearance Clear Clear Urine Color Yellow Dark Yellow Pale Urine Odor Normal Strong General appearance: no cooperative Cardiovascular Cardiovascular exam: Present irregular rhythm Extremities Exam Additional comments: Left lateral hip covered by surgical dressing Neurological Exam Neurological exam: Present altered Psychiatric Psychiatric exam: Present agitated OBJ DATA Labs 11/19/22 05:16 11/19/22 05:15 Labs: Abnormal Lab Results 11/19/22 11/19/22 11/18/22 05:16 05:15 16:00 MCV Neut % (Auto) 87.8 H Lymph % (Auto) 8.3 L Lymph # (Auto) 0.90 L Absolute Neutrophils 9.50 H VBG Lactic Acid 2.6 H Carbon Dioxide 21 L Glucose 157 H POC Glucose Ur Leukocyte Esterase Urine WBC Urine Mucus 11/18/22 11/18/22 11/18/22 11:19 11:15 10:54 MCV 101.7 H Neut % (Auto) Lymph % (Auto) Lymph # (Auto) 1.38 L Absolute Neutrophils VBG Lactic Acid Carbon Dioxide Glucose POC Glucose 123 H Ur Leukocyte Esterase 75 A Urine WBC 30 H Urine Mucus Few A Meds: Medications Acetaminophen (Acetaminophen 500 Mg Tablet) 1,000 mg PO Q6HP PRN; Protocol PRN Reason: Pain Albuterol/Ipratropium (Ipratropium/Albuterol 3 Ml Ampul.Neb) 3 ml NEB Q4HRT PRN PRN Reason: Wheezing Aspirin (Aspirin 325 Mg Enteric Coated Tablet) 325 mg PO BID [facility] Last Admin: 11/19/22 08:22 Dose: 325 mg Atorvastatin Calcium (Atorvastatin 40 Mg Tablet) 40 mg PO [facility] Docusate Sodium (Docusate Sodium 100 Mg Capsule) 100 mg PO BID [facility] Last Admin: 11/19/22 08:22 Dose: 100 mg Donepezil HCl (Donepezil 10 Mg Tablet) 10 mg PO QHS [facility] Last Admin: 11/18/22 23:47 Dose: Not Given Guaifenesin (Guaifenesin 600 Mg Tab.Sr.12h) 600 mg PO BIDP PRN PRN Reason: Congestion Sodium Chloride (Sodium Chloride 0.9%) 1,000 mls @ 100 mls/hr IV .Q10H [facility] Last Admin: 11/19/22 04:39 Dose: 100 mls/hr Ibuprofen (Ibuprofen 200 Mg Tablet) 600 mg PO Q6HP PRN PRN Reason: Pain Lidocaine (Lidocaine Patch) 1 patch TOPICAL PRN PRN PRN Reason: Pain Loratadine (Loratadine 10 Mg Tablet) 10 mg PO QDAY [facility] Last Admin: 11/19/22 08:22 Dose: 10 mg Memantine (Memantine 10 Mg Tablet) 10 mg PO BID [facility] Last Admin: 11/19/22 08:22 Dose: 10 mg Morphine Sulfate (Morphine 4 Mg/Ml Vial) 4 mg IV Q4HP PRN; Protocol PRN Reason: Per Pain Protocol Last Admin: 11/19/22 04:56 Dose: 4 mg Olanzapine (Olanzapine 5 Mg Tablet) 10 mg PO [facility] Ondansetron HCl (Ondansetron 4 Mg/2 Ml Vial) 4 mg IV Q6HP PRN PRN Reason: Nausea And Vomiting Oxycodone HCl (Oxycodone Ir 5 Mg Tablet) 5 mg PO Q4HP PRN; Protocol PRN Reason: Per Pain Protocol Last Admin: 11/19/22 07:18 Dose: 5 mg Polyethylene Glycol (Polyethylene Glycol 3350 17 Gm Packet) 17 gm PO [facility] PRN PRN Reason: Constipation Senna (Sennosides 1 Tablet) 2 tab PO [facility] Last Admin: 11/18/22 23:48 Dose: Not Given Sertraline HCl (Sertraline 100 Mg Tablet) 100 mg PO QDAY [facility] Last Admin: 11/19/22 08:22 Dose: 100 mg Sodium Chloride (0.9 % Sodium Chloride 10 Ml Syringe) 10 ml IV Q8 [facility] Last Admin: 11/19/22 04:39 Dose: Not Given Throat Lozenges (Benzocaine/Menthol 1 Lozenge) 1 lozenge PO PRN PRN PRN Reason: Sore Throat Trazodone HCl (Trazodone Hcl 50 Mg Tablet) 25 mg PO HSP PRN PRN Reason: Insomnia Trimethoprim/Sulfamethoxazole (Sulfamethoxazole/Trimethoprim 1 Tablet) 1 tab PO BID [facility]; Protocol A/P Assessment and plan (1) Closed fracture of left hip: Status: Acute (2) Dementia with behavioral disturbance: Status: Acute (3) PAF (paroxysmal atrial fibrillation): Status: Chronic Comment: Dr Bishop No evidence of recurrence in over a year. Eliquis was stopped. (4) Hyperlipidemia: Status: Chronic Qualifiers: Hyperlipidemia type: mixed hyperlipidemia Qualified Code(s): E78.2 - Mixed hyperlipidemia (5) Depression: Status: Chronic Comment: Ran out of sertraline a couple of months ago Restart sertraline 50 mg daily Qualifiers: Depression Type: major depressive disorder Major depression recurrence: single episode Active/Remission status: currently active Major depression episode severity: mild Qualified Code(s): F32.0 - Major depressive disorder, single episode, mild (6) UTI (urinary tract infection): Status: Acute Narrative A/P Narrative: Assessment and Plans: 1. Acute minimally displaced subcapital fracture of the left hip: Stays in inpatient MedSurg s/p percutaneous screw fixation of left femoral neck fracture Dr. Mckoy on 11/18 Aspirin 325mg PO BID as DVT ppx Tylenol Oxycodone Morphine Physical therapy evaluation and treatment Occupational Therapy evaluation and treatment 2. History of dementia: Donepezil Memantine 3. History of depressions: Continue sertraline 4. Dyslipidemia: Continue Crestor 5. Urinary infections: Serial lactic acid Procalcitonin level Blood culture, no growth to date Urine culture, no growth to date CBC with auto differential in the morning to trend WBC IV fluid with normal saline at 100 cc/h Bactrim DS GI prophylaxis: Not current indicated DVT prophylaxis: Aspirin 325mg PO BID CODE STATUS: DNR Prognosis: Guarded Dispositions: Inpatient MedSurg Time Spent With Patient Time: Total time spent is greater than 50% in coordination of care (as documented) at patient's floor/unit and/or counseling patient: Subsequent: Total time with patient: 35 - 49 minutes QUALITY VTE Deep Vein Thrombosis/Pulmonary Embolism Present on Admission: No
[2022-11-19] MEDS: cefTRIAXone 1 GM VIAL IV SCH (09:42)
--- NOTE | 2022-11-19 11:53 | Orthopedic Progress Note ---
SUBJECTIVE Subjective Patient information: Note initiated : 11/19/22 at 11:51 am Service Date, if different from initiated Date: [] Patient: Calvin Kay 87 y/o M admitted on 11/18/22 for Percutaneous Screw Fixations Left Hip Fracture. Chief Complaint: [] Principal diagnosis: L hip non-displaced femoral neck fx-stable Constitutional Vitals: Vital Signs Temp Pulse Resp BP Pulse Ox O2 Del Method O2 Flow Rate 98.9 F 74 20 132/80 96 Room Air 2 11/19/22 08:00 11/19/22 08:00 11/19/22 08:00 11/19/22 08:00 11/19/22 08:00 11/19/22 08:00 11/18/22 20:30 Period Temp Pulse Resp BP Sys/Lopez Pulse Ox O2 Del Method O2 Flow Rate Last 24 Hr 97.7 F-99.9 F 59-99 14-28 124-178/68-120 90-99 Oxymask-Room Air 0-6 Intake and Output 11/18/22 11/19/22 11/19/22 19:59 03:59 11:59 Intake Total 1050 972 Output Total 8 452 251 Balance 1042 -452 721 Weight 191 lb 178 lb 1.6 oz Intake & Output: Intake & Output 11/18/22 11/19/22 11/19/22 19:59 03:59 11:59 Intake Total 1050 972 Output Total 8 452 251 Balance 1042 -452 721 Weight 191 lb 178 lb 1.6 oz Intake: IV 50 972 Sodium Chloride 0.9% 1,000 ml @ 972 100 mls/hr IV .Q10H [facility] Rx#: [id number] Ancef 2 gm In Dextrose 5% in 50 Water 50 ml @ 100 mls/hr IV [facility] Rx#:[id number] IV - Manual Only 1000 Output: Void Amount 450 250 # of times incontinent of urine 3 2 1 Estimated Blood Loss 5 Other: Urine Appearance Clear Clear Urine Color Yellow Dark Yellow Pale Urine Odor Normal Strong Additional findings Additional findings: bandages c/d/i nvi-distal OBJ DATA Labs 11/19/22 05:16 11/19/22 05:15 Labs: Abnormal Lab Results 11/19/22 11/19/22 11/18/22 05:16 05:15 16:00 MCV Neut % (Auto) 87.8 H Lymph % (Auto) 8.3 L Lymph # (Auto) 0.90 L Absolute Neutrophils 9.50 H VBG Lactic Acid 2.6 H Carbon Dioxide 21 L Glucose 157 H POC Glucose Ur Leukocyte Esterase Urine WBC Urine Mucus 11/18/22 11/18/22 11/18/22 11:19 11:15 10:54 MCV 101.7 H Neut % (Auto) Lymph % (Auto) Lymph # (Auto) 1.38 L Absolute Neutrophils VBG Lactic Acid Carbon Dioxide Glucose POC Glucose 123 H Ur Leukocyte Esterase 75 A Urine WBC 30 H Urine Mucus Few A Meds: Medications Acetaminophen (Acetaminophen 500 Mg Tablet) 1,000 mg PO Q6HP PRN; Protocol PRN Reason: Pain Albuterol/Ipratropium (Ipratropium/Albuterol 3 Ml Ampul.Neb) 3 ml NEB Q4HRT PRN PRN Reason: Wheezing Aspirin (Aspirin 325 Mg Enteric Coated Tablet) 325 mg PO BID [facility] Last Admin: 11/19/22 08:22 Dose: 325 mg Atorvastatin Calcium (Atorvastatin 40 Mg Tablet) 40 mg PO [facility] Docusate Sodium (Docusate Sodium 100 Mg Capsule) 100 mg PO BID [facility] Last Admin: 11/19/22 08:22 Dose: 100 mg Donepezil HCl (Donepezil 10 Mg Tablet) 10 mg PO QHS [facility] Last Admin: 11/18/22 23:47 Dose: Not Given Guaifenesin (Guaifenesin 600 Mg Tab.Sr.12h) 600 mg PO BIDP PRN PRN Reason: Congestion Sodium Chloride (Sodium Chloride 0.9%) 1,000 mls @ 100 mls/hr IV .Q10H [facility] Last Admin: 11/19/22 04:39 Dose: 100 mls/hr Ibuprofen (Ibuprofen 200 Mg Tablet) 600 mg PO Q6HP PRN PRN Reason: Pain Lidocaine (Lidocaine Patch) 1 patch TOPICAL PRN PRN PRN Reason: Pain Loratadine (Loratadine 10 Mg Tablet) 10 mg PO QDAY [facility] Last Admin: 11/19/22 08:22 Dose: 10 mg Memantine (Memantine 10 Mg Tablet) 10 mg PO BID [facility] Last Admin: 11/19/22 08:22 Dose: 10 mg Morphine Sulfate (Morphine 4 Mg/Ml Vial) 4 mg IV Q4HP PRN; Protocol PRN Reason: Per Pain Protocol Last Admin: 11/19/22 04:56 Dose: 4 mg Olanzapine (Olanzapine 5 Mg Tablet) 10 mg PO HS [facility] Ondansetron HCl (Ondansetron 4 Mg/2 Ml Vial) 4 mg IV Q6HP PRN PRN Reason: Nausea And Vomiting Oxycodone HCl (Oxycodone Ir 5 Mg Tablet) 5 mg PO Q4HP PRN; Protocol PRN Reason: Per Pain Protocol Last Admin: 11/19/22 07:18 Dose: 5 mg Polyethylene Glycol (Polyethylene Glycol 3350 17 Gm Packet) 17 gm PO HSP PRN PRN Reason: Constipation Senna (Sennosides 1 Tablet) 2 tab PO HS [facility] Last Admin: 11/18/22 23:48 Dose: Not Given Sertraline HCl (Sertraline 100 Mg Tablet) 100 mg PO QDAY [facility] Last Admin: 11/19/22 08:22 Dose: 100 mg Sodium Chloride (0.9 % Sodium Chloride 10 Ml Syringe) 10 ml IV Q8 [facility] Last Admin: 11/19/22 04:39 Dose: Not Given Throat Lozenges (Benzocaine/Menthol 1 Lozenge) 1 lozenge PO PRN PRN PRN Reason: Sore Throat Trazodone HCl (Trazodone Hcl 50 Mg Tablet) 25 mg PO HSP PRN PRN Reason: Insomnia Trimethoprim/Sulfamethoxazole (Sulfamethoxazole/Trimethoprim 1 Tablet) 1 tab PO BID [facility]; Protocol A/P Assessment and plan (1) Closed fracture of left hip: Status: Acute Comment: Mobilize with PT Signing out Ortho service -f/u 2 weeks -weight bear as tolerated. -nhi out in 2 weeks. Time Spent With Patient Time: Total time spent is greater than 50% in coordination of care (as documented) at patient's floor/unit and/or counseling patient:
--- NOTE | 2022-11-19 13:03 | Internal Med Progress Note ---
SUBJECTIVE Subjective Patient information: Note initiated : 11/19/22 at 12:57 pm Service Date, if different from initiated Date: [] Patient: Calvin Kay a 87 y/o M admitted on 11/18/22 for Percutaneous Screw Fixations Left Hip Fracture. Chief Complaint: [] Principal diagnosis: L hip non-displaced femoral neck fx-stable Interval history: Mr. Kay is a 87 year old M history of dementia, proximal atrial fibrillation, dyslipidemia, depression, presenting with accidental fall. Patient was just admitted to the [facility] facility on 11/17/22. It was reported that the patient had not unwitnessed fall earlier this morning. Patient is not verbal at all hence cannot provide any further details. He was brought to our ED for further evaluations. Imaging showing acute minimally displaced subcapital fracture of the left hip. Vital signs stable. Labs significant for urinary tract infections suggested by the UA. Orthopedic surgeons Dr. Mckoy notified about the patient and would like to take the patient to the OR for surgical fixation today despite the fact that the patient was on Eliquis because he only plan to do a [id number] fixation. 11/19: s/p percutaneous screw fixation of left femoral neck fracture Dr. Mckoy on 11/18. Patient tolerated the procedure well. Patient is very confused this m orning. Subjective not obtained at due to clinical situations. Postoperative care with narcotics as needed for symptoms control. Physical therapy and Occupational Therapy evaluation and treatment for placement planning. Switch antibiotics from Rocephin to Bactrim DS for urinary tract infections while monitoring for blood and urine culture result. Overall condition guarded. 11/20 Review of Systems: denies headache/fever/chills/nausea/vomiting/chest or abdominal pain/cough/dyspnea/diarrhea. Otherwise see above. PHYSICAL EXAM General: Alert, Awake, No acute Distress Eyes/N/T: EOMI, no scleral icterus, Head/Neck: neck supple, full ROM, CV: irreg irreg, No murmurs, Pulm: Clear b/l, no wheezing/rhonchi/rales, no respiratory distress Abd: soft, nontender, +BS x4 Ext: no clubbing/cyanosis/edema, nontender. Left lateral hip covered by surgical dressing Neuro: Alert, no focal deficits, moves all extremities, , sensations intact b/l upper/lower Psychiatric: Skin: warm/dry, normal color Constitutional Vitals: Vital Signs Temp Pulse Resp BP Pulse Ox O2 Del Method O2 Flow Rate 98.2 F 76 20 142/66 95 Room Air 2 11/19/22 12:00 11/19/22 12:00 11/19/22 12:00 11/19/22 12:00 11/19/22 12:00 11/19/22 12:00 11/18/22 20:30 Period Temp Pulse Resp BP Sys/Lopez Pulse Ox O2 Del Method O2 Flow Rate Last 24 Hr 97.7 F-99.9 F 59-99 14-28 124-178/66-120 90-99 Oxymask-Room Air 0-6 Intake and Output 11/19/22 11/19/22 11/19/22 03:59 11:59 19:59 Intake Total 972 1000 Output Total 452 251 Balance -299 760 4125 Weight 80.785 kg 80.785 kg Patient Weight 11/20/22 03:59 Weight 80.785 kg Intake & Output: Intake & Output 11/19/22 11/19/22 11/19/22 03:59 11:59 19:59 Intake Total 972 1000 Output Total 452 251 Balance -115 938 1840 Weight 80.785 kg 80.785 kg Intake: IV 972 1000 Sodium Chloride 0.9% 1,000 ml @ 972 1000 100 mls/hr IV .Q10H [facility] Rx#: [id number] Output: Void Amount 450 250 # of times incontinent of urine 2 1 Other: Urine Appearance Clear Urine Color Dark Yellow Urine Odor Strong OBJ DATA Labs 11/19/22 05:16 11/19/22 05:15 Labs: Abnormal Lab Results 11/19/22 11/19/22 11/18/22 05:16 05:15 16:00 MCV Neut % (Auto) 87.8 H Lymph % (Auto) 8.3 L Lymph # (Auto) 0.90 L Absolute Neutrophils 9.50 H VBG Lactic Acid 2.6 H Carbon Dioxide 21 L Glucose 157 H POC Glucose Ur Leukocyte Esterase Urine WBC Urine Mucus 11/18/22 11/18/22 11/18/22 11:19 11:15 10:54 MCV 101.7 H Neut % (Auto) Lymph % (Auto) Lymph # (Auto) 1.38 L Absolute Neutrophils VBG Lactic Acid Carbon Dioxide Glucose POC Glucose 123 H Ur Leukocyte Esterase 75 A Urine WBC 30 H Urine Mucus Few A Meds: Medications Acetaminophen (Acetaminophen 500 Mg Tablet) 1,000 mg PO Q6HP PRN; Protocol PRN Reason: Pain Albuterol/Ipratropium (Ipratropium/Albuterol 3 Ml Ampul.Neb) 3 ml NEB Q4HRT PRN PRN Reason: Wheezing Aspirin (Aspirin 325 Mg Enteric Coated Tablet) 325 mg PO BID [facility] Last Admin: 11/19/22 08:22 Dose: 325 mg Atorvastatin Calcium (Atorvastatin 40 Mg Tablet) 40 mg PO [facility] Docusate Sodium (Docusate Sodium 100 Mg Capsule) 100 mg PO BID [facility] Last Admin: 11/19/22 08:22 Dose: 100 mg Donepezil HCl (Donepezil 10 Mg Tablet) 10 mg PO QHS [facility] Last Admin: 11/18/22 23:47 Dose: Not Given Guaifenesin (Guaifenesin 600 Mg Tab.Sr.12h) 600 mg PO BIDP PRN PRN Reason: Congestion Ibuprofen (Ibuprofen 200 Mg Tablet) 600 mg PO Q6HP PRN PRN Reason: Pain Lidocaine (Lidocaine Patch) 1 patch TOPICAL PRN PRN PRN Reason: Pain Loratadine (Loratadine 10 Mg Tablet) 10 mg PO QDAY [facility] Last Admin: 11/19/22 08:22 Dose: 10 mg Memantine (Memantine 10 Mg Tablet) 10 mg PO BID [facility] Last Admin: 11/19/22 08:22 Dose: 10 mg Morphine Sulfate (Morphine 4 Mg/Ml Vial) 4 mg IV Q4HP PRN; Protocol PRN Reason: Per Pain Protocol Last Admin: 11/19/22 04:56 Dose: 4 mg Olanzapine (Olanzapine 5 Mg Tablet) 10 mg PO [facility] Ondansetron HCl (Ondansetron 4 Mg/2 Ml Vial) 4 mg IV Q6HP PRN PRN Reason: Nausea And Vomiting Oxycodone HCl (Oxycodone Ir 5 Mg Tablet) 5 mg PO Q4HP PRN; Protocol PRN Reason: Per Pain Protocol Last Admin: 11/19/22 07:18 Dose: 5 mg Polyethylene Glycol (Polyethylene Glycol 3350 17 Gm Packet) 17 gm PO [facility] PRN PRN Reason: Constipation Senna (Sennosides 1 Tablet) 2 tab PO [facility] Last Admin: 11/18/22 23:48 Dose: Not Given Sertraline HCl (Sertraline 100 Mg Tablet) 100 mg PO QDAY [facility] Last Admin: 11/19/22 08:22 Dose: 100 mg Throat Lozenges (Benzocaine/Menthol 1 Lozenge) 1 lozenge PO PRN PRN PRN Reason: Sore Throat Trazodone HCl (Trazodone Hcl 50 Mg Tablet) 25 mg PO HSP PRN PRN Reason: Insomnia Trimethoprim/Sulfamethoxazole (Sulfamethoxazole/Trimethoprim 1 Tablet) 1 tab PO BID [facility]; Protocol A/P Narrative A/P Narrative: Assessment and Plans: *Acute minimally displaced subcapital fracture of the left hip: s/p ORIF (11/18) Dr. Mckoy on 11/18 -Aspirin 325mg PO BID as DVT ppx per ortho -Tylenol, Oxycodone, Morphine -Physical therapy evaluation and treatment, Occupational Therapy evaluation and treatment *Dementia: -Donepezil, Memantine *Depression: -Continue sertraline *Dyslipidemia: -Continue Crestor *UTI (Enterococcus): -Serial lactic acid, Procalcitonin level -Blood culture, no growth to date, Urine culture, no growth to date -BC with auto differential in the morning to trend WBC -Amoxicillin, pending sens *PAF: -on apixaban, held for surgery. restart when ok with ortho *Generalized weakness/deconditioning: *prophylaxis: Aspirin 325mg PO BID per ortho, restart home apixaban when ok with ortho CODE STATUS: DNR Time Spent With Patient Time: Total time spent is greater than 50% in coordination of care (as documented) at patient's floor/unit and/or counseling patient: QUALITY VTE Deep Vein Thrombosis/Pulmonary Embolism Present on Admission: No
[2022-11-19] MEDS: AMOXICILLIN 250 MG CAPSULE PO SCH ×2 (16:43→20:54)
[2022-11-19] MEDS: OLANZapine 5 MG TABLET PO SCH (20:56)
[2022-11-19] MEDS: DONEPEZIL 10 MG TABLET PO SCH (20:56)
[2022-11-19] MEDS: SENNOSIDES 1 TABLET PO SCH (20:56)
[2022-11-19] MEDS: ATORVASTATIN 40 MG TABLET PO SCH (20:56)
[2022-11-19] MEDS ORDERED: SULFAMETHOXAZOLE/TRIMETHOPRIM 1 TABLET PO SCH (21:00)
[2022-11-19] MEDS ORDERED: OLANZapine 5 MG TABLET PO ONE (21:55)
--- NOTE | 2022-11-20 07:34 | Internal Med Progress Note ---
SUBJECTIVE Subjective Patient information: Note initiated : 11/20/22 at 7:31 am Service Date, if different from initiated Date: [] Patient: Calvin Kay a 87 y/o M admitted on 11/18/22 for Percutaneous Screw Fixations Left Hip Fracture. Chief Complaint: [] Principal diagnosis: L hip non-displaced femoral neck fx-stable Interval history: Mr. Kay is a 87 year old M history of dementia, proximal atrial fibrillation, dyslipidemia, depression, presenting with accidental fall. Patient was just admitted to the [facility] facility on 11/17/22. It was reported that the patient had not unwitnessed fall earlier this morning. Patient is not verbal at all hence cannot provide any further details. He was brought to our ED for further evaluations. Imaging showing acute minimally displaced subcapital fracture of the left hip. Vital signs stable. Labs significant for urinary tract infections suggested by the UA. Orthopedic surgeons Dr. Mckoy notified about the patient and would like to take the patient to the OR for surgical fixation today despite the fact that the patient was on Eliquis because he only plan to do a [id number]-[id number] fixation. 11/19: s/p percutaneous screw fixation of left femoral neck fracture Dr. Mckoy on 11/18. Patient tolerated the procedure well. Patient is very confused this mo rning. Subjective not obtained at due to clinical situations. Postoperative care with narcotics as needed for symptoms control. Physical therapy and Occupational Therapy evaluation and treatment for placement planning. Switch antibiotics from Rocephin to Bactrim DS for urinary tract infections while monitoring for blood and urine culture result. Overall condition guarded. 11/20 Patient agitated early on in shift yesterday evening. Calm this morning. Sounds like he was able to get some rest last night. Urine culture Enterococcus, currently on amoxicillin and pending sensitivities. Review of Systems: Unable to obtain as patient does not answer my questions. PHYSICAL EXAM General: Alert, Awake, No acute Distress Eyes/N/T: EOMI, no scleral icterus, Head/Neck: neck supple, full ROM, CV: irreg irreg, No murmurs, Pulm: Clear b/l, no wheezing/rhonchi/rales, no respiratory distress Abd: soft, nontender, +BS x4 Ext: no clubbing/cyanosis/edema, nontender. Left lateral hip covered by surgical dressing Neuro: Alert, no focal deficits, moves all extremities, , sensations intact b/l upper/lower Psychiatric: Skin: warm/dry, normal color Constitutional Vitals: Vital Signs Temp Pulse Resp BP Pulse Ox O2 Del Method O2 Flow Rate 98.1 F 63 16 119/74 93 Room Air 2 11/20/22 03:35 11/20/22 03:35 11/20/22 03:35 11/20/22 03:35 11/20/22 03:35 11/20/22 03:35 11/18/22 20:30 Period Temp Pulse Resp BP Sys/Lopez Pulse Ox O2 Del Method O2 Flow Rate Last 24 Hr 97.8 F-98.9 F 63-76 16-20 119-154/66-90 90-96 Room Air-Room Air Intake and Output 11/19/22 11/20/22 11/20/22 19:59 03:59 11:59 Intake Total 1680 50 Output Total 402 50 Balance 1278 0 Weight 82.599 kg Intake & Output: Intake & Output 11/19/22 11/20/22 11/20/22 19:59 03:59 11:59 Intake Total 1680 50 Output Total 402 50 Balance 1278 0 Weight 82.599 kg Intake: IV 1000 Sodium Chloride 0.9% 1,000 ml @ 1000 100 mls/hr IV .Q10H [facility] Rx#: [id number] Oral 680 50 Output: Void Amount 400 50 # of times incontinent of urine 2 Other: Meal Lunch applesauce Percent of Meal Consumed 100% 75% Feeding Ability Total Assistance Urine Appearance Clear Clear Urine Color Yellow Yellow # Voids 1 OBJ DATA Labs 11/19/22 05:16 11/19/22 05:15 Labs: Abnormal Lab Results 11/19/22 11/19/22 11/18/22 05:16 05:15 16:00 MCV Neut % (Auto) 87.8 H Lymph % (Auto) 8.3 L Lymph # (Auto) 0.90 L Absolute Neutrophils 9.50 H VBG Lactic Acid 2.6 H Carbon Dioxide 21 L Glucose 157 H POC Glucose Ur Leukocyte Esterase Urine WBC Urine Mucus 11/18/22 11/18/22 11/18/22 11:19 11:15 10:54 MCV 101.7 H Neut % (Auto) Lymph % (Auto) Lymph # (Auto) 1.38 L Absolute Neutrophils VBG Lactic Acid Carbon Dioxide Glucose POC Glucose 123 H Ur Leukocyte Esterase 75 A Urine WBC 30 H Urine Mucus Few A Meds: Medications Acetaminophen (Acetaminophen 500 Mg Tablet) 1,000 mg PO Q6HP PRN; Protocol PRN Reason: Pain Albuterol/Ipratropium (Ipratropium/Albuterol 3 Ml Ampul.Neb) 3 ml NEB Q4HRT PRN PRN Reason: Wheezing Amoxicillin (Amoxicillin 250 Mg Capsule) 500 mg PO TID [facility] Last Admin: 11/19/22 20:54 Dose: 500 mg Aspirin (Aspirin 325 Mg Enteric Coated Tablet) 325 mg PO BID [facility] Last Admin: 11/19/22 20:55 Dose: 325 mg Atorvastatin Calcium (Atorvastatin 40 Mg Tablet) 40 mg PO HS [facility] Last Admin: 11/19/22 20:56 Dose: 40 mg Docusate Sodium (Docusate Sodium 100 Mg Capsule) 100 mg PO BID [facility] Last Admin: 11/19/22 20:55 Dose: 100 mg Donepezil HCl (Donepezil 10 Mg Tablet) 10 mg PO QHS [facility] Last Admin: 11/19/22 20:56 Dose: 10 mg Guaifenesin (Guaifenesin 600 Mg Tab.Sr.12h) 600 mg PO BIDP PRN PRN Reason: Congestion Ibuprofen (Ibuprofen 200 Mg Tablet) 600 mg PO Q6HP PRN PRN Reason: Pain Lidocaine (Lidocaine Patch) 1 patch TOPICAL PRN PRN PRN Reason: Pain Loratadine (Loratadine 10 Mg Tablet) 10 mg PO QDAY [facility] Last Admin: 11/19/22 08:22 Dose: 10 mg Memantine (Memantine 10 Mg Tablet) 10 mg PO BID [facility] Last Admin: 11/19/22 20:55 Dose: 10 mg Morphine Sulfate (Morphine 4 Mg/Ml Vial) 4 mg IV Q4HP PRN; Protocol PRN Reason: Per Pain Protocol Last Admin: 11/19/22 04:56 Dose: 4 mg Olanzapine (Olanzapine 5 Mg Tablet) 10 mg PO [facility] Last Admin: 11/19/22 20:56 Dose: 10 mg Ondansetron HCl (Ondansetron 4 Mg/2 Ml Vial) 4 mg IV Q6HP PRN PRN Reason: Nausea And Vomiting Oxycodone HCl (Oxycodone Ir 5 Mg Tablet) 5 mg PO Q4HP PRN; Protocol PRN Reason: Per Pain Protocol Last Admin: 11/19/22 20:55 Dose: 5 mg Polyethylene Glycol (Polyethylene Glycol 3350 17 Gm Packet) 17 gm PO HSP PRN PRN Reason: Constipation Senna (Sennosides 1 Tablet) 2 tab PO HS [facility] Last Admin: 11/19/22 20:56 Dose: 2 tab Sertraline HCl (Sertraline 100 Mg Tablet) 100 mg PO QDAY [facility] Last Admin: 11/19/22 08:22 Dose: 100 mg Throat Lozenges (Benzocaine/Menthol 1 Lozenge) 1 lozenge PO PRN PRN PRN Reason: Sore Throat Trazodone HCl (Trazodone Hcl 50 Mg Tablet) 25 mg PO HSP PRN PRN Reason: Insomnia A/P Narrative A/P Narrative: Assessment and Plans: *Left Hip Fx: s/p ORIF (11/18) Dr. Mckoy on 11/18 -Aspirin 325mg PO BID as DVT ppx per ortho -Tylenol, Oxycodone, Morphine -Physical therapy evaluation and treatment, Occupational Therapy evaluation and treatment *Dementia, Advanced: agitated at times -Donepezil, Memantine, zyprexa -delirium precautions *Depression: -Continue sertraline *Dyslipidemia: -Continue Crestor *UTI (Enterococcus): -Serial lactic acid, Procalcitonin level -Blood culture, no growth to date, Urine culture, no growth to date -BC with auto differential in the morning to trend WBC -Amoxicillin, pending sens *PAF: -on apixaban, held for surgery. restart when ok with ortho *Generalized weakness/deconditioning: *prophylaxis: Aspirin 325mg PO BID per ortho, restart home apixaban when ok with ortho CODE STATUS: DNR Time Spent With Patient Time: Total time spent is greater than 50% in coordination of care (as documented) at patient's floor/unit and/or counseling patient: Subsequent: Total time with patient: 50 - 65 Minutes QUALITY VTE Deep Vein Thrombosis/Pulmonary Embolism Present on Admission: No
[2022-11-20] MEDS: DOCUSATE SODIUM 100 MG CAPSULE PO SCH ×2 (09:42→20:10)
[2022-11-20] MEDS: ASPIRIN 325 MG ENTERIC COATED TABLET PO SCH ×2 (09:42→20:10)
[2022-11-20] MEDS: AMOXICILLIN 250 MG CAPSULE PO SCH ×3 (09:42→20:10)
[2022-11-20] MEDS: MEMANTINE 10 MG TABLET PO SCH ×2 (09:42→20:10)
[2022-11-20] MEDS: SERTRALINE 100 MG TABLET PO SCH (09:42)
[2022-11-20] MEDS: LORATADINE 10 MG TABLET PO SCH (09:43)
--- NOTE | 2022-11-20 11:03 | Discharge Summary ---
Discharge Provider Provider IMPORTANT FOLLOW-UP INFORMATION FOR PCP: Patient information: Note initiated : 11/20/22 at 11:01 am Service Date, if different from initiated Date: [] Patient: Calvin Kay 87 y/o M admitted on 11/18/22 for Percutaneous Screw Fixations Left Hip Fracture. Chief Complaint: [] Date of admission: 11/18/22 15:31 Discharge date: 11/22/22 Primary care physician: Rashad Mcdonnell DO Consults: 11/18/22 Consult to Physician [CONS] Stat Comment: Consulting Provider: Olivier Mckoy Reason For Exam: Physician to Consult Consult to Physician [CONS] Stat Comment: Consulting Provider: Sundeep Pascual Reason For Exam: Physician to Consult COURSE Hospital Course Hospital course: Mr. Kay is a 87 year old M history of dementia, proximal atrial fibrillation, dyslipidemia, depression, presenting with accidental fall. [facility]. It was reported that the patient had not unwitnessed fall earlier this morning. Patient is not verbal at all hence cannot provide any further details. He was brought to our ED for further evaluations. Imaging showing acute minimally displaced subcapital fract ure of the left hip. Vital signs stable. Labs significant for urinary tract infections suggested by the UA. Orthopedic surgeons Dr. Mckoy notified about the patient and would like to take the patient to the OR for surgical fixation today despite the fact that the patient was on Eliquis because he only plan to do a cikg-smc-ftjie fixation. 11/19: s/p percutaneous screw fixation of left femoral neck fracture Dr. Mckoy on 11/18. Patient tolerated the procedure well. Patient is very confused this morning. Subjective not obtained at due to clinical situations. Postoperative care with narcotics as needed for symptoms control. Physical therapy and Occupational Therapy evaluation and treatment for placement planning. Switch antibiotics from Rocephin to Bactrim DS for urinary tract infections while monitoring for blood and urine culture result. Overall condition guarded. 11/20 Patient agitated early on in shift yesterday evening. Calm this morning. Sounds like he was able to get some rest last night. Urine culture Enterococcus, currently on amoxicillin and pending sensitivities. 11/21 Poor sleep last night despite sleep aids. Severe dementia. Currently sleeping in bed. Does awaken to touch. 11/22 Does not sound like he slept very well last night. Patient has hiccups. No other acute events Assessment and Plans: *Left Hip Fx: s/p ORIF (11/18) Dr. Mckoy on 11/18 *Dementia, Advanced: agitated at times *Depression: *Dyslipidemia: *UTI (Enterococcus): -Amoxicillin *PAF: *Generalized weakness/deconditioning: Discharge diagnosis: left hip fx, uti Secondary discharge diagnosis: Enterococcus UTI dementia depression dyslipidemia PAF generalized weakness Time Spent with Patient Time attestation: Total time spent providing and/or coordinating discharge services: Time spent: Greater than 30 minutes EXAM Constitutional Vitals: Temp Pulse Resp BP Pulse Ox O2 Del Method O2 Flow Rate 98.1 F 62 18 126/74 95 Room Air 2 11/20/22 07:47 11/20/22 07:47 11/20/22 07:47 11/20/22 07:47 11/20/22 07:47 11/20/22 07:47 11/18/22 20:30 Discharge Data Data Completed and Pending Labs on day of discharge: Preliminary micro results at discharge 11/18/22 05:14 Blood Culture - Preliminary Blood 11/18/22 16:03 Blood Culture - Preliminary Blood 11/18/22 10:54 Urine Culture - Preliminary Urine - Clean Void Mid-Stream Enterococcus species Discharge Plan Patient/Caregiver Discharge Instructions Activity: increase activity as tolerated Diet: Regular Diet Prescriptions: New amoxicillin 250 mg Capsule 500 mg PO TID Qty: 12 0RF Continued rosuvastatin 20 mg tablet 20 mg PO QDAY Qty: 30 2RF Eliquis 5 mg tablet 5 mg PO BID Qty: 60 3RF donepezil 10 mg tablet 10 mg PO QHS Qty: 30 5RF ibuprofen 200 mg tablet 600 mg PO Q6H PRN (Reason: pain) Qty: 60 0RF senna 8.6 mg PO DAILYP PRN (Reason: constipation) docusate sodium 200 mg PO DAILYP PRN (Reason: constipation) loratadine [Allergy Relief (loratadine)] 10 mg tablet 10 mg PO QDAY Qty: 60 1RF bisacodyl 10 mg suppository [address] QDAY PRN (Reason: constipation) Qty: 12 0RF acetaminophen [Tylenol Extra Strength] 500 mg tablet 1,000 mg PO Q6HP PRN (Reason: Pain) sertraline 100 mg tablet 100 mg PO QDAY Qty: 90 1RF olanzapine 10 mg tablet 10 mg PO QHS Qty: 90 3RF memantine 10 mg tablet 10 mg PO BID Qty: 180 3RF aspirin 81 mg tablet,delayed release (DR/EC) 81 mg PO QDAY Qty: 30 0RF lidocaine 5 % adhesive patch,medicated 1 patch topical PRN PRN (Reason: Pain) Rx Instructions: Apply to most painful area for up to 12 hrs/day. polyethylene glycol 3350 [Miralax] 17 gram/dose powder 17 g PO QDP PRN (Reason: Constipation) guaifenesin 400 mg tablet 400 mg PO QIDP PRN (Reason: cough) tramadol 50 mg tablet 50 mg PO BID PRN (Reason: pain) Qty: 20 0RF Follow Up Plan Follow up with: Olivier Mckoy MD [Physician] - Rashad Mcdonnell DO [Primary Care Provider] - Patient Disposition: Xfer SNF Prognosis: Fair Rehab Potential: Fair I certify that the patient requires SNF services: Yes Overall status at discharge: patient is progressing back to baseline Discharge Orders: Discharge Order (Routine); Ordered 11/22/22 Ordered By: Tenzin Snow [facility] VTE Deep Vein Thrombosis/Pulmonary Embolism Present on Admission: No
[2022-11-20] MEDS: IBUPROFEN 200 MG TABLET PO PRN ×2 (15:35→22:12)
--- NOTE | 2022-11-20 19:22 | EKG ---
[facility] Test Date: 2022-11-18 Pat Name: Calvin Kay Department: ED Room: Gender: Male Bag Sorter: se : 1935 Requested By: Zayda Red Order Number: [id number] Reading MD: Jason Sanabria Measurements Intervals Sprakers Rate: 65 P: 36 AK: 199 QRS: 50 QRSD: 103 T: 36 QT: 423 QTc: 440 Interpretive Statements Sinus rhythm Abnormal R-wave progression, early transition Minimal ST depression Baseline wander in lead(s) V1 Electronically Signed On 11-20-2022 19:22:27 PDT by Jason Sanabria /store/M0/[id number]
[2022-11-20] MEDS: SENNOSIDES 1 TABLET PO SCH (20:09)
[2022-11-20] MEDS: DONEPEZIL 10 MG TABLET PO SCH (20:10)
[2022-11-20] MEDS: OLANZapine 5 MG TABLET PO SCH (20:10)
[2022-11-20] MEDS: oxyCODONE IR 5 MG TABLET PO PRN (20:11)
[2022-11-20] MEDS: ATORVASTATIN 40 MG TABLET PO SCH (20:11)
[2022-11-20] MEDS: traZODone HCL 50 MG TABLET PO PRN (21:12)
[2022-11-21] MEDS: oxyCODONE IR 5 MG TABLET PO PRN ×3 (00:23→14:42)
--- NOTE | 2022-11-21 07:45 | Consultation ---
DATE OF CONSULTATION: 11/18/2022 DATE OF CONSULTATION: 11/18/2022 REQUESTING PROVIDER: Zayda Red PA-C CONSULTING PHYSICIAN: Olivier Mckoy MD REASON FOR CONSULTATION: Left hip fracture. HISTORY OF PRESENT ILLNESS: This is an 87-year-old male with significant other medical comorbidities including dementia, who was just admitted to a dementia care facility and sustained a fall. He is nonverbal and was grimacing in pain. He was taken to the ER. A CT scan was done, which showed a subcapital femoral neck fracture that was nondisplaced. PAST MEDICAL HISTORY: Dementia, atrial fibrillation, depression, and hypercholesterolemia. PAST SURGICAL HISTORY: Pacemaker, foot surgery, inguinal hernia repair, cataract surgery, and tonsillectomy. MEDICATIONS: Can be reviewed in the chart, but is significant for Eliquis 5 mg twice a day. ALLERGIES: NO KNOWN DRUG ALLERGIES. SOCIAL HISTORY: He is . He was recently admitted to a memory care facility. No smoking. History of occasional alcohol use. REVIEW SYSTEMS: Unable to be obtained due to his mental status. PHYSICAL EXAMINATION: VITAL SIGNS: At admission, temperature 36.8 degrees Celsius, pulse of 69, respirations 22, blood pressure 143/120, pulse ox 95% on room air. GENERAL: He appears his stated age, in no acute distress. He is not oriented to person, place, or time. MUSCULOSKELETAL: He is tender to palpation over the left hip with grimacing to range of motion. There is no gross instability noted. Strength is unable to be assessed. His sensation is unable to be assessed. Pulses palpable. IMAGING DATA: X-ray and CT reviewed, showed a nondisplaced subcapital femoral neck fracture. IMPRESSION: Left nondisplaced subcapital femoral neck fracture in an 87-year-old male with profound dementia. PLAN: I did discuss with the family options and they wished to proceed surgically, and I would recommend proceeding then with a percutaneous screw fixation of the left femoral neck fracture. I discussed with them the risks of surgery, which include, but not limited to, bleeding; infection, injury to nerves, blood vessels, or other surrounding structures, anesthetic risks, nonunion or malunion of the fracture, failure of hardware fixation, possibility of needing further surgery such as arthroplasty. They understood these risks and wished to proceed. We will proceed right away. JOSE:heather Job ID: [id number] Doc ID: [id number] Olivier Mckoy MD
[2022-11-21] MEDS: LORATADINE 10 MG TABLET PO SCH (08:40)
[2022-11-21] MEDS: SERTRALINE 100 MG TABLET PO SCH (08:41)
[2022-11-21] MEDS: DOCUSATE SODIUM 100 MG CAPSULE PO SCH ×2 (08:41→20:51)
[2022-11-21] MEDS: AMOXICILLIN 250 MG CAPSULE PO SCH ×3 (08:41→20:52)
[2022-11-21] MEDS: MEMANTINE 10 MG TABLET PO SCH ×2 (08:41→20:51)
[2022-11-21] MEDS: ASPIRIN 325 MG ENTERIC COATED TABLET PO SCH (08:41)
--- NOTE | 2022-11-21 09:21 | Operative Note ---
DATE OF OPERATION: 11/18/2022 DATE OF PROCEDURE: 11/18/2022 PREOPERATIVE DIAGNOSIS: Left nondisplaced subcapital femoral neck fracture. POSTOPERATIVE DIAGNOSIS: Left nondisplaced subcapital femoral neck fracture. PROCEDURE PERFORMED: Percutaneous screw fixation of a left femoral neck fracture using three 6.5 mm cannulated screws from [employer]. SURGEON: Olivier Mckoy M.D. STOPPER SETTER: Hong Bullock PA-C. This providers expertise and technical skill were required throughout the case. The PA assisted with preoperative coordination, intraoperative retraction, wound closure, and dressing and splint application, as well as postoperative documentation and care coordination. ANESTHESIA: General. DRAINS: None. SPECIMENS: None. COMPLICATIONS: None. ESTIMATED BLOOD LOSS: 20 mL. POSTOPERATIVE CONDITION: Stable. INDICATIONS FOR SURGERY: This is an 87-year-old male who reportedly sustained a ground level unwitnessed fall. He was complaining of pain essentially all over. A CT scan was obtained in the ER and found to have a nondisplaced subcapital femoral neck fracture. FINDINGS AT SURGERY: Nondisplaced subcapital femoral neck fracture of questionable duration. Post-fixation showed satisfactory fracture alignment and hardware position. PROCEDURE IN DETAIL: The patient's and son were with him preoperatively and informed consent had been obtained after discussion of risks and benefits of surgery. Risks including, but not limited to, bleeding; infection; injury to nerves, blood vessels, other surrounding structures, anesthetic risks; nonunion, malunion of the fracture; failure of hardware fixation; possibility of requiring further surgery such as arthroplasty. They understood these risks and wished to proceed. The patient was taken to the operating room. General anesthesia induced. He was carefully positioned on the fracture table and the right lower extremity was flexed and abducted out of the way and carefully padded. The left lower extremity was then placed in some gentle traction with some internal rotation. Fluoroscopy was brought in to check the fracture alignment. We did make some adjustments of leg position but the fracture did not move making me questions that this was truly an acute fracture. We then prepped and draped the left hip and lower extremity in normal sterile fashion. A timeout was performed verifying patient name, operative site, and plan. Fluoroscopy was brought in and trajectory was marked with a marking pen. I then made a small stab incision just distal to the trochanter and spread down to bone. A guide pin was then placed just above the bottom of the lesser trochanter on AP view and center on the lateral view and this was passed up the inferior femoral neck into the head and subchondral bone. Once we liked the position, I placed a second K-wire proximal and posterior along the posterior femoral neck and a third was placed anterior and slightly more proximal still. Once we liked our pin position in both AP and lateral planes, a depth gauge was used to measure length. I then used the drill to drill the near cortex and then the screws were advanced. The two proximal screws got good purchase in the head. The inferior was not as good. I then backed the guide pins out at three different lengths so I could know which screws were which and then took AP and lateral x-rays, a final x-ray saved and then the guide pins were removed. We irrigated with saline. Monocryl was used for subcutaneous closure and nhi for skin. Xeroform and a sterile dressing were applied. The patient was awakened, extubated, and transferred to recovery in stable condition. JOSE:darrel Job ID: [id number] Doc ID: [id number] Olivier Mckoy MD
--- NOTE | 2022-11-21 10:00 | Internal Med Progress Note ---
SUBJECTIVE Subjective Patient information: Note initiated : 11/21/22 at 9:56 am Service Date, if different from initiated Date: [] Patient: Calvin Kay a 87 y/o M admitted on 11/18/22 for Percutaneous Screw Fixations Left Hip Fracture. Chief Complaint: [] Principal diagnosis: L hip non-displaced femoral neck fx-stable Interval history: Mr. Kay is a 87 year old M history of dementia, proximal atrial fibrillation, dyslipidemia, depression, presenting with accidental fall. Patient was just admitted to the [facility] on 11/17/22. It was reported that the patient had not unwitnessed fall earlier this morning. Patient is not verbal at all hence cannot provide any further details. He was brought to our ED for further evaluations. Imaging showing acute minimally displaced subcapital fracture of the left hip. Vital signs stable. Labs significant for urinary tract infections suggested by the UA. Orthopedic surgeons Dr. Mckoy notified about the patient and would like to take the patient to the OR for surgical fixation today despite the fact that the patient was on Eliquis because he only plan to do a [id number] fixation. 11/19: s/p percutaneous screw fixation of left femoral neck fracture Dr. Mckoy on 11/18. Patient tolerated the procedure well. Patient is very confused this mo rning. Subjective not obtained at due to clinical situations. Postoperative care with narcotics as needed for symptoms control. Physical therapy and Occupational Therapy evaluation and treatment for placement planning. Switch antibiotics from Rocephin to Bactrim DS for urinary tract infections while monitoring for blood and urine culture result. Overall condition guarded. 11/20 Patient agitated early on in shift yesterday evening. Calm this morning. Sounds like he was able to get some rest last night. Urine culture Enterococcus, currently on amoxicillin and pending sensitivities. 11/21 Poor sleep last night despite sleep aids. Severe dementia. Currently sleeping in bed. Does awaken to touch. Review of Systems: Unable to obtain as patient does not answer my questions. PHYSICAL EXAM General: sleeping, No acute Distress Eyes/N/T: EOMI, no scleral icterus, Head/Neck: neck supple, full ROM, CV: irreg irreg, No murmurs, Pulm: Clear b/l, no wheezing/rhonchi/rales, no respiratory distress Abd: soft, nontender, +BS x4 Ext: no clubbing/cyanosis/edema, nontender. Left lateral hip covered by surgical dressing Neuro: Awakens, no focal deficits, moves all extremities, , sensations intact b/l upper/lower Psychiatric: Skin: warm/dry, normal color Constitutional Vitals: Vital Signs Temp Pulse Resp BP Pulse Ox O2 Del Method O2 Flow Rate 98.1 F 69 16 107/60 91 Room Air 2 11/21/22 08:00 11/21/22 08:00 11/21/22 08:00 11/21/22 08:00 11/21/22 08:00 11/21/22 08:00 11/18/22 20:30 Period Temp Pulse Resp BP Sys/Lopez Pulse Ox O2 Del Method O2 Flow Rate Last 24 Hr 97.6 F-99.1 F 60-69 16-20 107-140/60-82 91-96 Room Air-Room Air Intake and Output 11/20/22 11/21/22 11/21/22 19:59 03:59 11:59 Intake Total 600 300 Output Total 1077 600 Balance -477 -300 Weight 82.146 kg Intake & Output: Intake & Output 11/20/22 11/21/22 11/21/22 19:59 03:59 11:59 Intake Total 600 300 Output Total 1077 600 Balance -477 -300 Weight 82.146 kg Intake: Oral 600 300 Output: Void Amount 1075 600 # of times incontinent of urine 2 Other: Meal Lunch Percent of Meal Consumed 50% Feeding Ability Total Assistance Urine Appearance Clear Clear Urine Color Dark Yellow Dark Yellow OBJ DATA Labs 11/19/22 05:16 11/19/22 05:15 Labs: Abnormal Lab Results 11/19/22 11/19/22 11/18/22 05:16 05:15 16:00 MCV Neut % (Auto) 87.8 H Lymph % (Auto) 8.3 L Lymph # (Auto) 0.90 L Absolute Neutrophils 9.50 H VBG Lactic Acid 2.6 H Carbon Dioxide 21 L Glucose 157 H POC Glucose Ur Leukocyte Esterase Urine WBC Urine Mucus 11/18/22 11/18/22 11/18/22 11:19 11:15 10:54 MCV 101.7 H Neut % (Auto) Lymph % (Auto) Lymph # (Auto) 1.38 L Absolute Neutrophils VBG Lactic Acid Carbon Dioxide Glucose POC Glucose 123 H Ur Leukocyte Esterase 75 A Urine WBC 30 H Urine Mucus Few A Meds: Medications Acetaminophen (Acetaminophen 500 Mg Tablet) 1,000 mg PO Q6HP PRN; Protocol PRN Reason: Pain Last Admin: 11/21/22 00:22 Dose: 1,000 mg Albuterol/Ipratropium (Ipratropium/Albuterol 3 Ml Ampul.Neb) 3 ml NEB Q4HRT PRN PRN Reason: Wheezing Amoxicillin (Amoxicillin 250 Mg Capsule) 500 mg PO TID [facility] Last Admin: 11/21/22 08:41 Dose: 500 mg Aspirin (Aspirin 325 Mg Enteric Coated Tablet) 325 mg PO BID [facility] Last Admin: 11/21/22 08:41 Dose: 325 mg Atorvastatin Calcium (Atorvastatin 40 Mg Tablet) 40 mg PO [facility] Last Admin: 11/20/22 20:11 Dose: 40 mg Docusate Sodium (Docusate Sodium 100 Mg Capsule) 100 mg PO BID [facility] Last Admin: 11/21/22 08:41 Dose: 100 mg Donepezil HCl (Donepezil 10 Mg Tablet) 10 mg PO QHS [facility] Last Admin: 11/20/22 20:10 Dose: 10 mg Guaifenesin (Guaifenesin 600 Mg Tab.Sr.12h) 600 mg PO BIDP PRN PRN Reason: Congestion Ibuprofen (Ibuprofen 200 Mg Tablet) 600 mg PO Q6HP PRN PRN Reason: Pain Last Admin: 11/20/22 22:12 Dose: 600 mg Lidocaine (Lidocaine Patch) 1 patch TOPICAL PRN PRN PRN Reason: Pain Loratadine (Loratadine 10 Mg Tablet) 10 mg PO QDAY [facility] Last Admin: 11/21/22 08:40 Dose: 10 mg Memantine (Memantine 10 Mg Tablet) 10 mg PO BID [facility] Last Admin: 11/21/22 08:41 Dose: 10 mg Morphine Sulfate (Morphine 4 Mg/Ml Vial) 4 mg IV Q4HP PRN; Protocol PRN Reason: Per Pain Protocol Last Admin: 11/19/22 04:56 Dose: 4 mg Olanzapine (Olanzapine 5 Mg Tablet) 10 mg PO [facility] Last Admin: 11/20/22 20:10 Dose: 10 mg Ondansetron HCl (Ondansetron 4 Mg/2 Ml Vial) 4 mg IV Q6HP PRN PRN Reason: Nausea And Vomiting Oxycodone HCl (Oxycodone Ir 5 Mg Tablet) 5 mg PO Q4HP PRN; Protocol PRN Reason: Per Pain Protocol Last Admin: 11/21/22 08:40 Dose: 5 mg Polyethylene Glycol (Polyethylene Glycol 3350 17 Gm Packet) 17 gm PO HSP PRN PRN Reason: Constipation Senna (Sennosides 1 Tablet) 2 tab PO HS [facility] Last Admin: 11/20/22 20:09 Dose: 2 tab Sertraline HCl (Sertraline 100 Mg Tablet) 100 mg PO QDAY [facility] Last Admin: 11/21/22 08:41 Dose: 100 mg Throat Lozenges (Benzocaine/Menthol 1 Lozenge) 1 lozenge PO PRN PRN PRN Reason: Sore Throat Trazodone HCl (Trazodone Hcl 50 Mg Tablet) 25 mg PO HSP PRN PRN Reason: Insomnia Last Admin: 11/20/22 21:12 Dose: 25 mg A/P Narrative A/P Narrative: Assessment and Plans: *Left Hip Fx: s/p ORIF (11/18) Dr. Mckoy on 11/18 -Aspirin 325mg PO BID as DVT ppx per ortho -Tylenol, Oxycodone, Morphine -Physical therapy evaluation and treatment, Occupational Therapy evaluation and treatment *Dementia, Advanced: agitated at times -Donepezil, Memantine, zyprexa -delirium precautions *Depression: -Continue sertraline *Dyslipidemia: -Continue Crestor *UTI (Enterococcus): -Serial lactic acid, Procalcitonin level -Blood culture, no growth to date, Urine culture, no growth to date -BC with auto differential in the morning to trend WBC -Amoxicillin *PAF: -on apixaban, held for surgery. restart when ok with ortho *Generalized weakness/deconditioning: *prophylaxis: Aspirin 325mg PO BID per ortho, restart home apixaban when ok with ortho CODE STATUS: DNR Time Spent With Patient Time: Total time spent is greater than 50% in coordination of care (as documented) at patient's floor/unit and/or counseling patient: QUALITY VTE Deep Vein Thrombosis/Pulmonary Embolism Present on Admission: No
[2022-11-21] MEDS: traZODone HCL 50 MG TABLET PO PRN (20:52)
[2022-11-21] MEDS: OLANZapine 5 MG TABLET PO SCH (20:52)
[2022-11-21] MEDS: DONEPEZIL 10 MG TABLET PO SCH (20:52)
[2022-11-21] MEDS: SENNOSIDES 1 TABLET PO SCH (20:52)
[2022-11-21] MEDS: APIXABAN 5 MG TABLET PO SCH (20:52)
[2022-11-21] MEDS: ATORVASTATIN 40 MG TABLET PO SCH (20:52)
[2022-11-22] MEDS ORDERED: PANTOPRAZOLE 40 MG PACKET PO SCH (07:30)
--- NOTE | 2022-11-22 07:51 | Internal Med Progress Note ---
SUBJECTIVE Subjective Patient information: Note initiated : 11/22/22 at 7:50 am Service Date, if different from initiated Date: [] Patient: Calvin Kay a 87 y/o M admitted on 11/18/22 for Percutaneous Screw Fixations Left Hip Fracture. Chief Complaint: [] Principal diagnosis: L hip non-displaced femoral neck fx-stable Interval history: Mr. Kay is a 87 year old M history of dementia, proximal atrial fibrillation, dyslipidemia, depression, presenting with accidental fall. Patient was just admitted to the [facility] facility on 11/17/22. It was reported that the patient had not unwitnessed fall earlier this morning. Patient is not verbal at all hence cannot provide any further details. He was brought to our ED for further evaluations. Imaging showing acute minimally displaced subcapital fracture of the left hip. Vital signs stable. Labs significant for urinary tract infections suggested by the UA. Orthopedic surgeons Dr. Mckoy notified about the patient and would like to take the patient to the OR for surgical fixation today despite the fact that the patient was on Eliquis because he only plan to do a [id number] fixation. 11/19: s/p percutaneous screw fixation of left femoral neck fracture Dr. Mckoy on 11/18. Patient tolerated the procedure well. Patient is very confused this mo rning. Subjective not obtained at due to clinical situations. Postoperative care with narcotics as needed for symptoms control. Physical therapy and Occupational Therapy evaluation and treatment for placement planning. Switch antibiotics from Rocephin to Bactrim DS for urinary tract infections while monitoring for blood and urine culture result. Overall condition guarded. 11/20 Patient agitated early on in shift yesterday evening. Calm this morning. Sounds like he was able to get some rest last night. Urine culture Enterococcus, currently on amoxicillin and pending sensitivities. 11/21 Poor sleep last night despite sleep aids. Severe dementia. Currently sleeping in bed. Does awaken to touch. 11/22 Does not sound like he slept very well last night. Patient has hiccups. No other acute events Review of Systems: Unable to obtain as patient does not answer my questions. PHYSICAL EXAM General: awake, No acute Distress Eyes/N/T: EOMI, no scleral icterus, Head/Neck: neck supple, full ROM, CV: irreg irreg, No murmurs, Pulm: Clear b/l, no wheezing/rhonchi/rales, no respiratory distress Abd: soft, nontender, +BS x4 Ext: no clubbing/cyanosis/edema, nontender. Left lateral hip covered by surgical dressing Neuro: Awake, no focal deficits, moves all extremities, , sensations intact b/l upper/lower Psychiatric: Skin: warm/dry, normal color Constitutional Vitals: Vital Signs Temp Pulse Resp BP Pulse Ox O2 Del Method O2 Flow Rate 98.2 F 74 18 126/58 94 Room Air 2 11/22/22 03:24 11/22/22 03:24 11/22/22 03:24 11/22/22 03:24 11/22/22 03:24 11/22/22 03:24 11/18/22 20:30 Period Temp Pulse Resp BP Sys/Lopez Pulse Ox O2 Del Method O2 Flow Rate Last 24 Hr 97.3 F-98.3 F 66-74 16-18 107-128/58-74 91-96 Room Air-Room A ir Intake and Output 11/21/22 11/22/22 11/22/22 19:59 03:59 11:59 Intake Total 600 Output Total 401 1100 Balance 199 -1100 Weight 82.735 kg Intake & Output: Intake & Output 11/21/22 11/22/22 11/22/22 19:59 03:59 11:59 Intake Total 600 Output Total 401 1100 Balance 199 -1100 Weight 82.735 kg Intake: Oral 600 Output: Void Amount 400 1100 # of times incontinent of urine 1 Other: Meal Dinner Percent of Meal Consumed 75% Feeding Ability Total Assistance Urine Appearance Clear Clear Urine Color Dark Yellow Yellow Urine Odor Normal # Voids 200 OBJ DATA Labs 11/19/22 05:16 11/19/22 05:15 Meds: Medications Acetaminophen (Acetaminophen 500 Mg Tablet) 1,000 mg PO Q6HP PRN; Protocol PRN Reason: Pain Last Admin: 11/21/22 00:22 Dose: 1,000 mg Albuterol/Ipratropium (Ipratropium/Albuterol 3 Ml Ampul.Neb) 3 ml NEB Q4HRT PRN PRN Reason: Wheezing Amoxicillin (Amoxicillin 250 Mg Capsule) 500 mg PO TID [facility] Last Admin: 11/21/22 20:52 Dose: 500 mg Apixaban (Apixaban 5 Mg Tablet) 5 mg PO BID [facility] Last Admin: 11/21/22 20:52 Dose: 5 mg Atorvastatin Calcium (Atorvastatin 40 Mg Tablet) [address] [facility] Last Admin: 11/21/22 20:52 Dose: 40 mg Docusate Sodium (Docusate Sodium 100 Mg Capsule) 100 mg PO BID [facility] Last Admin: 11/21/22 20:51 Dose: 100 mg Donepezil HCl (Donepezil 10 Mg Tablet) [address] [facility] [facility] Last Admin: 11/21/22 20:52 Dose: 10 mg Guaifenesin (Guaifenesin 600 Mg Tab.Sr.12h) 600 mg PO BIDP PRN PRN Reason: Congestion Ibuprofen (Ibuprofen 200 Mg Tablet) 600 mg PO Q6HP PRN PRN Reason: Pain Last Admin: 11/20/22 22:12 Dose: 600 mg Lidocaine (Lidocaine Patch) 1 patch TOPICAL PRN PRN PRN Reason: Pain Loratadine (Loratadine 10 Mg Tablet) 10 mg PO QDAY [facility] Last Admin: 11/21/22 08:40 Dose: 10 mg Memantine (Memantine 10 Mg Tablet) 10 mg PO BID [facility] Last Admin: 11/21/22 20:51 Dose: 10 mg Morphine Sulfate (Morphine 4 Mg/Ml Vial) 4 mg IV Q4HP PRN; Protocol PRN Reason: Per Pain Protocol Last Admin: 11/19/22 04:56 Dose: 4 mg Olanzapine (Olanzapine 5 Mg Tablet) [address] [facility] Last Admin: 11/21/22 20:52 Dose: 10 mg Ondansetron HCl (Ondansetron 4 Mg/2 Ml Vial) 4 mg IV Q6HP PRN PRN Reason: Nausea And Vomiting Oxycodone HCl (Oxycodone Ir 5 Mg Tablet) 5 mg PO Q4HP PRN; Protocol PRN Reason: Per Pain Protocol Last Admin: 11/21/22 14:42 Dose: 5 mg Polyethylene Glycol (Polyethylene Glycol 3350 17 Gm Packet) 17 gm PO HSP PRN PRN Reason: Constipation Senna (Sennosides 1 Tablet) [address] [facility] Last Admin: 11/21/22 20:52 Dose: 2 tab Sertraline HCl (Sertraline 100 Mg Tablet) 100 mg PO QDAY [facility] Last Admin: 11/21/22 08:41 Dose: 100 mg Throat Lozenges (Benzocaine/Menthol 1 Lozenge) 1 lozenge PO PRN PRN PRN Reason: Sore Throat Trazodone HCl (Trazodone Hcl 50 Mg Tablet) 25 mg PO HSP PRN PRN Reason: Insomnia Last Admin: 11/21/22 20:52 Dose: 25 mg A/P Narrative A/P Narrative: Assessment and Plans: *Left Hip Fx: s/p ORIF (11/18) Dr. Mckoy on 11/18 -Aspirin 325mg PO BID as DVT ppx per ortho -Tylenol, Oxycodone, Morphine -Physical therapy evaluation and treatment, Occupational Therapy evaluation and treatment *Dementia, Advanced: agitated at times -Donepezil, Memantine, zyprexa -delirium precautions *Depression: -Continue sertraline *Oral pharyngeal dysphagia: -Diet per ST *Dyslipidemia: -Continue Crestor *UTI (Enterococcus): -Serial lactic acid, Procalcitonin level -Blood culture, no growth to date, Urine culture, no growth to date -BC with auto differential in the morning to trend WBC -Amoxicillin *PAF: -on apixaban, held for surgery. restart when ok with ortho *Generalized weakness/deconditioning: *prophylaxis: Aspirin 325mg PO BID per ortho, restart home apixaban when ok with ortho CODE STATUS: DNR Time Spent With Patient Time: Total time spent is greater than 50% in coordination of care (as documented) at patient's floor/unit and/or counseling patient: Subsequent: Total time with patient: 35 - 49 minutes QUALITY VTE Deep Vein Thrombosis/Pulmonary Embolism Present on Admission: No
[2022-11-22] MEDS: AMOXICILLIN 250 MG CAPSULE PO SCH (08:03)
[2022-11-22] MEDS: oxyCODONE IR 5 MG TABLET PO PRN ×2 (08:03→12:31)
[2022-11-22] MEDS: APIXABAN 5 MG TABLET PO SCH (08:03)
[2022-11-22] MEDS: MEMANTINE 10 MG TABLET PO SCH (08:04)
[2022-11-22] MEDS: SERTRALINE 100 MG TABLET PO SCH (08:04)
[2022-11-22] MEDS: LORATADINE 10 MG TABLET PO SCH (08:04)
[2022-11-22] MEDS: DOCUSATE SODIUM 100 MG CAPSULE PO SCH (08:04)
[2022-11-22] MEDS ORDERED: BACLOFEN 10 MG TABLET PO SCH (09:00)
[2022-11-22] MEDS: IBUPROFEN 200 MG TABLET PO PRN (12:31)
== END 2022-11-22 15:00 | DRG 481 ==
LOC: ED 09:36 → MEDSUR 15:31
PROVIDERS: ADMIT Internal Medicine; ATTEND Internal Medicine